=== PATIENT | female | born 1950 | race Two or more races ===

== ENCOUNTER 2016-10-06 12:16 | Inpatient (IN) | payer OTHER ==
--- NOTE | 2016-10-06 16:16 | PDOC ---
History of Present Illness - History of Present Illness Initial Comments: 10/06/16 16:46 The patient is a 66 year old female with a past medical hx of DM, HTN, hyperlipidemia who presents to the ED complaining of nausea for a few days. The patient states she occasionally has been spitting up a white colored sputum. The patient has no further complaints at this time. The patient denies chest pain, SOB The patient denies fever, chills The patient denies dysuria, frequency Allergies: NKDA Social: No toxic habits reported PCP: Dr. Hodge <Ryanne Knowles - Last Filed: 10/06/16 16:46> <Cayetano Nina - Last Filed: 10/07/16 20:37> - General Chief Complaint: Lightheaded Stated Complaint: VOMITING Past History <Ryanne Knowles - Last Filed: 10/06/16 16:46> - Past Medical History Diabetes: Yes HTN: Yes Hypercholesterolemia: Yes - Immunization History Immunization Up to Date: Yes - Psycho/Social/Smoking Cessation Hx Anxiety: No Suicidal Ideation: No Smoking Status: No Smoking History: Never smoked Number of Cigarettes Smoked Daily: 0 Information on smoking cessation initiated: No Hx Alcohol Use: No <Cayetano Nina - Last Filed: 10/07/16 20:37> - Past Medical History Allergies/Adverse Reactions: Allergies Allergy/AdvReac Type Severity Reaction Status Date / Time No Known Allergies Allergy Verified 10/06/16 12:30 Home Medications: Ambulatory Orders Aspirin [ASA -] 81 mg PO DAILY 10/06/16 Cholecalciferol (Vitamin D3) [Vitamin D3 -] 5,000 unit PO DAILY 10/06/16 Linaclotide [Linzess] 145 mcg PO DAILY 10/06/16 Linagliptin/Metformin HCl [Jentadueto 2.5 mg-1000 mg Tab] 1 each PO BID Review of Systems - Review of Systems Able to Perform ROS?: Yes Comments:: 10/06/16 16:47 CONSTITUTIONAL: Absent: fever, no chills, no fatigue EYES: Absent: visual changes ENT: Absent: ear pain, no sore throat CARDIOVASCULAR: Absent: chest pain, no palpitations RESPIRATORY: Absent: cough, no SOB GI: +Nausea. Absent: abdominal pain, no constipation, no diarrhea GENITOURINARY: Absent: dysuria, no frequency, no hematuria MUSCULOSKELETAL: Absent: back pain, no arthralgia, no myalgia SKIN: Absent: rash <Ryanne Knowles - Last Filed: 10/06/16 16:46> *Physical Exam - Vital Signs Last Vital Signs Temp Pulse Resp BP Pulse Ox 97.7 F 61 18 136/70 98 10/06/16 12:27 10/06/16 12:27 10/06/16 12:27 10/06/16 12:27 10/06/16 12:27 - Physical Exam Comments: 10/06/16 16:47 GENERAL: Well-appearing, well-nourished. No apparent distress. HEENT: +Dry mucous membranes. Normocephalic, atraumatic. PERRL, EOM intact. Neck is supple. No JVD. CARDIOVASCULAR: Heart is in sinus rhythm. PULMONARY: Clear to auscultation bilaterally. ABDOMEN: Soft, non-distended, non-tender. EXTREMITIES: Normal ROM in all four extremities. No gross deformities. No peripheral edema. SKIN: Warm, dry. No rash NEUROLOGICAL: No focal neurological deficits. <Ryanne Knowles - Last Filed: 10/06/16 16:46> - Vital Signs Last Vital Signs Temp Pulse Resp BP Pulse Ox 97.7 F 61 18 136/70 98 10/06/16 12:27 10/06/16 12:27 10/06/16 12:27 10/06/16 12:27 10/06/16 12:27 <Cayetano Nina - Last Filed: 10/07/16 20:37> ED Treatment Course - LABORATORY CBC & Chemistry Diagram: 10/06/16 16:20 10/06/16 16:20 <Ryanne Knowles - Last Filed: 10/06/16 16:46> - LABORATORY CBC & Chemistry Diagram: 10/07/16 08:00 10/07/16 08:00 <Cayetano Nina - Last Filed: 10/07/16 20:37> *DC/Admit/Observation/Transfer - Attestations Scribe Attestion: 10/06/16 16:46 Documentation prepared by Ryanne Knowles, acting as medical practice manager for Cayetano Nina MD, /DO. <Ryanne Knowles - Last Filed: 10/06/16 16:46> <Cayetano Nina - Last Filed: 10/07/16 20:37> Diagnosis at time of Disposition: Pancreatitis Qualifiers: Chronicity: acute Pancreatitis type: other Qualified Code(s): K85.8 - Other acute pancreatitis - Referrals
[2016-10-06 16:51] LABS: URINE APPEARANCE CLEAR; URINE BILIRUBIN NEGATIVE (NEGATIVE); URINE BLOOD NEGATIVE (NEGATIVE); URINE COLOR YELLOW; URINE GLUCOSE (UA) NEGATIVE (NEGATIVE); URINE KETONE 1+ (NEGATIVE); URINE NITRITE NEGATIVE (NEGATIVE); URINE PROTEIN NEGATIVE (NEGATIVE); URINE UROBILINOGEN NEGATIVE E.U./dl (0.2-1.0)
[2016-10-06 16:54] LABS: BASOPHIL 0.6 % (0-2.0); EOSINOPHIL 2.2 % (0-4.5); MCH 30.8 pg (25.7-33.7); MCHC 33.6 g/dl (32.0-36.0); MEAN CELL VOLUME 91.7 fl (80-96); MEAN PLT VOLUME 7.9 fl (7.5-11.1); NEUTROPHILS 72.2 % (42.8-82.8); PLATELET COUNT 229 K/MM3 (134-434); RDW 12.5 % (11.6-15.6); WHITE BLOOD COUNT 8.9 K/mm3 (4.0-10.0)
[2016-10-06 17:09] LABS: URINE LEUK ESTERASE TRACE (NEGATIVE)
[2016-10-06 17:12] LABS: ALBUMIN 4.5 g/dl (3.4-5.0); ANION GAP 11 (8-16); BILIRUBIN,TOTAL 0.7 mg/dL (0.2-1.0); CALCIUM 9.5 mg/dL (8.5-10.1); CO2 26 mmol/L (21-32); CREATININE 0.8 mg/dL (0.55-1.02); GLUCOSE,RANDOM 133 mg/dL (74-106); SGOT/AST 33 U/L (15-37); SGPT/ALT 44 U/L (12-78); TOT PROT 7.7 g/dl (6.4-8.2)
[2016-10-06] MEDS ORDERED: SODIUM CHLORIDE 1,000 ML IV ONE (17:12)
[2016-10-06 17:13] LABS: ALK PHOS 66 U/L (45-117)
[2016-10-06] MEDS ORDERED: SODIUM CHLORIDE 1,000 ML IV STA (17:42)
--- NOTE | 2016-10-06 19:39 | PDOC ---
*Physical Exam - Vital Signs Last Vital Signs Temp Pulse Resp BP Pulse Ox 97.7 F 61 18 136/70 98 10/06/16 12:27 10/06/16 12:27 10/06/16 12:27 10/06/16 12:27 10/06/16 12:27 ED Treatment Course - LABORATORY CBC & Chemistry Diagram: 10/06/16 16:20 10/06/16 16:20 - ADDITIONAL ORDERS Additional order review: Laboratory Results 10/06/16 10/06/16 16:20 16:20 Sodium 141 Potassium 4.3 Chloride 104 Carbon Dioxide 26 Anion Gap 11 BUN 18 Creatinine 0.8 Creat Clearance w eGFR > 60 Random Glucose 133 H Calcium 9.5 Total Bilirubin 0.7 AST 33 ALT 44 Alkaline Phosphatase 66 Total Protein 7.7 Albumin 4.5 Lipase 526 H Urine Color Yellow Urine Appearance Clear Urine pH 5.0 Ur Specific Mather 1.021 Urine Protein Negative Urine Glucose (UA) Negative Urine Ketones 1+ H Urine Blood Negative Urine Nitrite Negative Urine Bilirubin Negative Urine Urobilinogen Negative Ur Leukocyte Esterase Trace H 10/06/16 16:20 Influenza Types A,B Antigen (JUDY) - Final Nasopharyngeal Swab - Final 10/06/16 16:20 RBC 4.96 MCV 91.7 MCHC 33.6 RDW 12.5 MPV 7.9 Neutrophils % 72.2 Lymphocytes % 20.7 Monocytes % 4.3 Eosinophils % 2.2 Basophils % 0.6 - Medications Given in the ED: ED Medications Discontinued Medications Generic Name Dose Route Start Last Admin Trade Name Freq PRN Reason Stop Dose Admin Fentanyl 50 mcg 10/06/16 17:43 10/06/16 18:10 Sublimaze Injection - IVPUSH 10/06/16 17:44 50 mcg ONCE ONE Administration Sodium Chloride 1,000 mls @ 1,000 mls/hr 10/06/16 17:12 10/06/16 17:12 Normal Saline - IV 10/06/16 18:11 1,000 mls/hr ASDIR ONE Administration Sodium Chloride 1,000 mls @ 1,000 mls/hr 10/06/16 17:42 10/06/16 18:05 Normal Saline - IV 10/06/16 18:41 Not Given ASDIR STA *DC/Admit/Observation/Transfer Diagnosis at time of Disposition: Pancreatitis Qualifiers: Chronicity: acute Pancreatitis type: other Qualified Code(s): K85.8 - Other acute pancreatitis - Discharge Dispostion Condition at time of disposition: Stable Admit: Yes - Referrals Referrals: Chloé Hodge MD [Primary Care Provider] - - Patient Instructions - Post Discharge Activity
[2016-10-06] MEDS ORDERED: morphine CARPU-JECT 2 MG/1 ML DISP.SYRIN IVPUSH PRN (20:17)
[2016-10-06] MEDS ORDERED: DOCUSATE SODIUM 100 MG CAPSULE (FP) PO PRN (20:17)
[2016-10-06 20:42] LABS: URINE MUCUS FEW; URINE RBC 1 /hpf (0-3); URINE WBC 2 /hpf (3-5)
[2016-10-06] MEDS: DEXTROSE 5%-NORMAL SALINE 1,000 ML IV SCH (22:52)
[2016-10-06] MEDS ORDERED: HEPARIN NA (PORCINE) 5,000 UNITS/ML 1ML VIAL ONE (23:01)
[2016-10-06] MEDS ORDERED: INSULIN (NOVOLOG) ASPART 100 UNITS/ML 10ML VIAL ONE (23:02)
[2016-10-06] MEDS: HEPARIN NA (PORCINE) 5,000 UNITS/ML 1ML VIAL SQ SCH (23:09)
[2016-10-06] MEDS: INSULIN SLIDING SCALE (NOVOLOG) 1 VIAL SQ SCH (23:10)
[2016-10-07 08:34] LABS: BASOPHIL 0.4 % (0-2.0); EOSINOPHIL 6.1 % (0-4.5); MCH 31.5 pg (25.7-33.7); MCHC 34.2 g/dl (32.0-36.0); MEAN CELL VOLUME 92.2 fl (80-96); MEAN PLT VOLUME 7.2 fl (7.5-11.1); NEUTROPHILS 48.7 % (42.8-82.8); PLATELET COUNT 178 K/MM3 (134-434); RDW 12.6 % (11.6-15.6); WHITE BLOOD COUNT 5.9 K/mm3 (4.0-10.0)
[2016-10-07 09:15] LABS: ALBUMIN 3.8 g/dl (3.4-5.0); ANION GAP 8 (8-16); BILIRUBIN,TOTAL 0.5 mg/dL (0.2-1.0); CALCIUM 8.2 mg/dL (8.5-10.1); CO2 28 mmol/L (21-32); CREATININE 0.8 mg/dL (0.55-1.02); GLUCOSE,RANDOM 157 mg/dL (74-106); SGOT/AST 22 U/L (15-37); SGPT/ALT 34 U/L (12-78); TOT PROT 6.5 g/dl (6.4-8.2)
[2016-10-07 09:16] LABS: ALK PHOS 55 U/L (45-117)
[2016-10-07] MEDS: ASPIRIN 81 MG CHEWABLE TABLETS PO SCH ×2 (10:12→10:19)
[2016-10-07] MEDS: HEPARIN NA (PORCINE) 5,000 UNITS/ML 1ML VIAL SQ SCH ×3 (10:13→22:40)
--- NOTE | 2016-10-07 12:47 | HP ---
Admitting History and Physical - Primary Care Physician PCP: Chloé Hodge I - Admission Chief Complaint: came in for nausea History of Present Illness: The patient is a 66 year old female with a past medical hx of DM, HTN, hyperlipidemia who presents to the ED complaining of nausea for a few days. The patient states she occasionally has been spitting up a white colored sputum. The patient has no further complaints at this time. The patient denies chest pain, SOB The patient denies fever, chills The patient denies dysuria, frequency Allergies: NKDA Social: No toxic habits reported PCP: Dr. Hodge per patient she has not been able to eat for last 2 days she has been nauseous and vomitting.no fever no abdominal pain History Source: Patient - Past Medical History Cardiovascular: Yes: HTN, Hyperlipdemia Endocrine: Yes: Diabetes Mellitus - Smoking History Smoking history: Never smoked Aproximately how many cigarettes per day: 0 - Alcohol/Substance Use Hx Alcohol Use: No Home Medications - Allergies Allergies/Adverse Reactions: Allergies Allergy/AdvReac Type Severity Reaction Status Date / Time No Known Allergies Allergy Verified 10/06/16 12:30 - Home Medications Home Medications: Ambulatory Orders Aspirin [ASA -] 81 mg PO DAILY 10/06/16 Cholecalciferol (Vitamin D3) [Vitamin D3 -] 5,000 unit PO DAILY 10/06/16 Linaclotide [Linzess] 145 mcg PO DAILY 10/06/16 Linagliptin/Metformin HCl [Jentadueto 2.5 mg-1000 mg Tab] 1 each PO BID Physical Examination Vital Signs: Vital Signs Temperature 97.1 F L 10/07/16 10:07 Pulse Rate 50 L 10/07/16 10:07 Respiratory Rate 20 10/07/16 10:07 Blood Pressure 124/62 10/07/16 10:07 O2 Sat by Pulse Oximetry (%) 98 10/06/16 12:27 Labs: CBC, BMP 10/07/16 08:00 10/07/16 08:00 Problem List - Problems (1) Elevated lipase Assessment/Plan: maybe viral gastroeneteritis ultrasound shows no acute abnormalitly lipase trending down zofran prn ivf npo for now GI and ID eval pain control check lipid panel check hga1c Code(s): R74.8 - ABNORMAL LEVELS OF OTHER SERUM ENZYMES (2) Diabetes Assessment/Plan: deloris hold metformin and linagliptin for now- might be a cause for her symtpoms check hga1c check bgm sldidng scale Code(s): E11.9 - TYPE 2 DIABETES MELLITUS WITHOUT COMPLICATIONS Qualifiers: Diabetes mellitus type: type 2
[2016-10-07] MEDS ORDERED: ONDANSETRON 4 MG/2 ML VIAL IVPUSH PRN (12:50)
--- NOTE | 2016-10-07 13:16 | PN ---
Progress Note (short form) - Note Progress Note: ID consult dictated imp/reccd nausea elevated lipase no evidence of uti no need for antibiotics Problem List - Problems (1) Nausea Code(s): R11.0 - NAUSEA (2) Pancreatitis Code(s): K85.9 - ACUTE PANCREATITIS, UNSPECIFIED * DO NOT USE * Qualifiers: Chronicity: acute Pancreatitis type: other Qualified Code(s): K85.8 - Other acute pancreatitis
[2016-10-07] MEDS: INSULIN SLIDING SCALE (NOVOLOG) 1 VIAL SQ SCH ×3 (14:15→22:40)
--- NOTE | 2016-10-07 15:26 | EKG ---
Test Reason : Blood Pressure : / mmHG Vent. Rate : 064 BPM Atrial Rate : 064 BPM P-R Int : 150 ms QRS Dur : 092 ms QT Int : 454 ms P-R-T Axes : 023 033 054 degrees QTc Int : 468 ms NORMAL SINUS RHYTHM NONSPECIFIC ST ABNORMALITY ABNORMAL ECG NO PREVIOUS ECGS AVAILABLE Confirmed by YUNIOR GUZMAN MD ([id number]) on 10/07/2016 3:25:59 PM Referred By: Confirmed By:YUNIOR GUZMAN MD
--- NOTE | 2016-10-07 15:27 | CONS ---
DATE OF CONSULTATION: DATE OF DICTATION: 10/07/2016 INFECTIOUS DISEASE CONSULTATION REQUESTING PHYSICIAN: Rex Felton M.D. CONSULTING PHYSICIAN: Lamar Dowd M.D. HISTORY OF PRESENT ILLNESS: This is a 66-year-old woman with a history of intermittent nausea and abnormal LFTs, states she has had for the last several months. She is followed by Dr. Cruz for GI. Yesterday, she became extremely dizzy and nauseous, and she presented to the emergency room. Both the dizziness and nausea has resolved now. She has no vomiting. She has no fevers or chills. She has no chest pain, dysuria, or frequency. PAST MEDICAL HISTORY: Notable for diabetes, hypertension, hypercholesterolemia. She has no known drug allergies. Her oral medication list is notable for aspirin, Linzess, vitamin D, and Jentadueto. FAMILY HISTORY: Noncontributory. SOCIAL HISTORY: She is . She lives with her . There is no history of any recent travel. PHYSICAL EXAMINATION: General: She is awake and alert. Vital signs: Temperature is 97.1, pulse of 50, blood pressure 124/62, respiratory rate 20, she weighs 136. HEENT: Normocephalic. Eyes are anicteric. Neck: Supple. Lungs: Clear to auscultation. Heart: Regular rate and rhythm. Abdomen: Soft. She has no right upper quadrant or midepigastric tenderness, or suprapubic tenderness, or CVA tenderness. Extremities: Without edema. LABORATORY: Notable for a white count of 5.9, hemoglobin 13.6, platelets 178, BUN and creatinine are 18 and 0.8. LFTs are normal. Urinalysis has 2 white cells. Urine culture is pending. Influenza screen is negative. Her ultrasound of her abdomen is notable for diffuse hepatic steatosis, and otherwise unremarkable. IMPRESSION: In summary, this is a 66-year-old woman admitted with nausea and elevated lipase. No evidence of any urinary tract infection, no need for antibiotics. Her antibiotics--would observe her off antibiotics with gastrointestinal evaluation. LAMAR DOWD M.D. ALISHA/[id number]
--- NOTE | 2016-10-07 15:58 | CON.GI ---
Consult Consult Specialty:: Gi Referred by:: Dr Felton/Madina - History of Present Illness History of Present Illness: 66y/o female has nausea and vomiting this morning associated with chronic ASA use and mildly elevated lipase, abd ultrasound fatty liver, no GB stones - Past Medical History Cardio/Vascular: Yes: HTN, Hyperlipdemia Endocrine: Yes: Diabetes Mellitus - Alcohol/Substance Use Hx Alcohol Use: No - Smoking History Smoking history: Never smoked Aproximately how many cigarettes per day: 0 Home Medications - Allergies Allergies/Adverse Reactions: Allergies Allergy/AdvReac Type Severity Reaction Status Date / Time No Known Allergies Allergy Verified 10/06/16 12:30 - Home Medications Home Medications: Ambulatory Orders Aspirin [ASA -] 81 mg PO DAILY 10/06/16 Cholecalciferol (Vitamin D3) [Vitamin D3 -] 5,000 unit PO DAILY 10/06/16 Linaclotide [Linzess] 145 mcg PO DAILY 10/06/16 Linagliptin/Metformin HCl [Jentadueto 2.5 mg-1000 mg Tab] 1 each PO BID Physical Exam-GI Vital Signs: Vital Signs Temperature 97.1 F L 10/07/16 10:07 Pulse Rate 50 L 10/07/16 10:07 Respiratory Rate 20 10/07/16 10:07 Blood Pressure 124/62 10/07/16 10:07 O2 Sat by Pulse Oximetry (%) 98 10/06/16 12:27 Constitutional: Yes: Well Nourished Eyes: Yes: Conjunctiva Clear HENT: Yes: Atraumatic Neck: Yes: Supple Cardiovascular: Yes: Regular Rate and Rhythm Respiratory: Yes: CTA Bilaterally ...Palpate: Yes: Soft. No: Firm/Rigid, Guarding, Hepatomegaly, Mass, Pulsatile Mass, Splenomegaly, Tenderness Edema: LUE: 4+, RUE: 4+, LLE: 4+, RLE: 4+ Labs: CBC, BMP 10/07/16 08:00 10/07/16 08:00 Hepatic Panel Total Bilirubin 0.5 mg/dL (0.2-1.0) D 10/07/16 08:00 AST 22 U/L (15-37) D 10/07/16 08:00 ALT 34 U/L (12-78) D 10/07/16 08:00 Alkaline Phosphatase 55 U/L (45-117) 10/07/16 08:00 Albumin 3.8 g/dl (3.4-5.0) 10/07/16 08:00 CBC,CMP WBC 5.9 K/mm3 (4.0-10.0) D 10/07/16 08:00 RBC 4.30 M/mm3 (3.60-5.2) 10/07/16 08:00 Hgb 13.6 GM/dL (10.7-15.3) D 10/07/16 08:00 Hct 39.6 % (32.4-45.2) 10/07/16 08:00 MCV 92.2 fl (80-96) 10/07/16 08:00 MCHC 34.2 g/dl (32.0-36.0) 10/07/16 08:00 RDW 12.6 % (11.6-15.6) 10/07/16 08:00 Plt Count 178 K/MM3 (134-434) D 10/07/16 08:00 MPV 7.2 fl (7.5-11.1) L 10/07/16 08:00 Neutrophils % 48.7 % (42.8-82.8) D 10/07/16 08:00 Lymphocytes % 36.6 % (8-40) D 10/07/16 08:00 Monocytes % 8.2 % (3.8-10.2) D 10/07/16 08:00 Eosinophils % 6.1 % (0-4.5) H D 10/07/16 08:00 Basophils % 0.4 % (0-2.0) 10/07/16 08:00 Sodium 143 mmol/L (136-145) 10/07/16 08:00 Potassium 3.9 mmol/L (3.5-5.1) 10/07/16 08:00 Chloride 107 mmol/L (98-107) 10/07/16 08:00 Carbon Dioxide 28 mmol/L (21-32) 10/07/16 08:00 Anion Gap 8 (8-16) 10/07/16 08:00 BUN 18 mg/dL (7-18) 10/07/16 08:00 Creatinine 0.8 mg/dL (0.55-1.02) 10/07/16 08:00 Creat Clearance w eGFR > 60 (>60) 10/07/16 08:00 POC Glucometer 143.97610 UNITS (()) 10/07/16 14:02 Random Glucose 157 mg/dL (74-106) H 10/07/16 08:00 Calcium 8.2 mg/dL (8.5-10.1) L 10/07/16 08:00 Total Bilirubin 0.5 mg/dL (0.2-1.0) D 10/07/16 08:00 AST 22 U/L (15-37) D 10/07/16 08:00 ALT 34 U/L (12-78) D 10/07/16 08:00 Alkaline Phosphatase 55 U/L (45-117) 10/07/16 08:00 Total Protein 6.5 g/dl (6.4-8.2) 10/07/16 08:00 Albumin 3.8 g/dl (3.4-5.0) 10/07/16 08:00 Lipase 254 U/L (73-393) 10/07/16 08:00 Problem List - Problems (1) Vomiting Assessment/Plan: and nausea, unlikely pancredatitis, R?O PUD and gastroparesis R> continue IV hydration IV Protonix IV Reglan advance diet made aware to fff-up as an outpatient for further gi w/u Code(s): R11.10 - VOMITING, UNSPECIFIED
--- NOTE | 2016-10-07 17:14 | CONSULT ---
Consult Consult Specialty:: Surgery Referred by:: Chary Reason for Consultation:: Abdominal pain, nausea. - History of Present Illness Chief Complaint: Pain , in upper abdomen abdomen since yesterday, with nausea. History of Present Illness: C/O Upper abdomional pain , and nausea since yesterday. No diarrhea. - History Source History Provided By: Patient Limitations to Obtaining History: No Limitations - Past Medical History Cardio/Vascular: Yes: HTN, Hyperlipdemia Endocrine: Yes: Diabetes Mellitus - Alcohol/Substance Use Hx Alcohol Use: No - Smoking History Smoking history: Never smoked Aproximately how many cigarettes per day: 0 Home Medications - Allergies Allergies/Adverse Reactions: Allergies Allergy/AdvReac Type Severity Reaction Status Date / Time No Known Allergies Allergy Verified 10/06/16 12:30 - Home Medications Home Medications: Ambulatory Orders Aspirin [ASA -] 81 mg PO DAILY 10/06/16 Cholecalciferol (Vitamin D3) [Vitamin D3 -] 5,000 unit PO DAILY 10/06/16 Linaclotide [Linzess] 145 mcg PO DAILY 10/06/16 Linagliptin/Metformin HCl [Jentadueto 2.5 mg-1000 mg Tab] 1 each PO BID Physical Exam Vital Signs: Vital Signs Temperature 97.1 F L 10/07/16 10:07 Pulse Rate 50 L 10/07/16 10:07 Respiratory Rate 20 10/07/16 10:07 Blood Pressure 124/62 10/07/16 10:07 O2 Sat by Pulse Oximetry (%) 98 10/06/16 12:27 Gastrointestinal: Yes: WNL, Normal Bowel Sounds, Soft (No palpable mass.) Labs: CBC, BMP 10/07/16 08:00 10/07/16 08:00 Imaging - Results Ultrasound: Report Reviewed (Hepatic steatosis.) Problem List - Problems (1) Elevated lipase Code(s): R74.8 - ABNORMAL LEVELS OF OTHER SERUM ENZYMES (2) Diabetes Code(s): E11.9 - TYPE 2 DIABETES MELLITUS WITHOUT COMPLICATIONS Qualifiers: Diabetes mellitus type: type 2 Diabetes mellitus complication status: without complication (3) Pancreatitis Code(s): K85.9 - ACUTE PANCREATITIS, UNSPECIFIED * DO NOT USE * Qualifiers: Chronicity: acute Pancreatitis type: other Qualified Code(s): K85.8 - Other acute pancreatitis Assessment/Plan Patient is comfortable, no abdominal signs. Monitor lipase , with serial blood work. Will follow.
[2016-10-07] MEDS ORDERED: INSULIN (NOVOLOG) ASPART 100 UNITS/ML 10ML VIAL ONE ×2 (17:22→17:23)
[2016-10-07 21:11] VITALS: BMI 24.3
[2016-10-07] MEDS ORDERED: PANTOPRAZOLE SODIUM 40 MG in SODIUM CHLORIDE 100 ML IVPB SCH (22:00)
[2016-10-07] MEDS: METOCLOPRAMIDE HCL INJECTION 10 MG/2 ML VIAL IVPB SCH (22:41)
[2016-10-07] MEDS: DEXTROSE 5%-NORMAL SALINE 1,000 ML IV SCH (22:41)
[2016-10-07] MEDS: PANTOPRAZOLE SODIUM 40 MG/100 ML PRE-DOCKED IVPB SCH (22:41)
[2016-10-08] MEDS: METOCLOPRAMIDE HCL INJECTION 10 MG/2 ML VIAL IVPB SCH ×2 (05:37→14:40)
[2016-10-08] MEDS: INSULIN SLIDING SCALE (NOVOLOG) 1 VIAL SQ SCH ×3 (06:01→12:02)
[2016-10-08 09:49] VITALS: BP 113/61
[2016-10-08] MEDS: ASPIRIN 81 MG CHEWABLE TABLETS PO SCH (09:51)
[2016-10-08] MEDS: HEPARIN NA (PORCINE) 5,000 UNITS/ML 1ML VIAL SQ SCH (09:51)
[2016-10-08] MEDS: PANTOPRAZOLE SODIUM 40 MG/100 ML PRE-DOCKED IVPB SCH (09:51)
[2016-10-08 09:54] LABS: ALBUMIN 3.6 g/dl (3.4-5.0); ALK PHOS 52 U/L (45-117); ANION GAP 10 (8-16); BILIRUBIN,TOTAL 0.5 mg/dL (0.2-1.0); CO2 26 mmol/L (21-32); CREATININE 0.7 mg/dL (0.55-1.02); GLUCOSE,RANDOM 152 mg/dL (74-106); SGOT/AST 25 U/L (15-37); SGPT/ALT 31 U/L (12-78); TOT PROT 6.3 g/dl (6.4-8.2)
[2016-10-08 10:17] LABS: CHOLESTEROL 143 mg/dL (50-200); LDL CHOLESTEROL (ONLY SJRH) 77 mg/dL (5-100)
[2016-10-08] MEDS ORDERED: INSULIN (NOVOLOG) ASPART 100 UNITS/ML 10ML VIAL ONE (11:43)
[2016-10-08] MEDS: DEXTROSE 5%-NORMAL SALINE 1,000 ML IV SCH (12:02)
[2016-10-08 13:44] VITALS: PULSE 60; TEMP 98.5
--- NOTE | 2016-10-08 14:31 | DS ---
Physical Examination Vital Signs: Vital Signs Temperature 98.5 F 10/08/16 13:28 Pulse Rate 60 10/08/16 13:28 Respiratory Rate 18 10/08/16 13:28 Blood Pressure 113/61 10/08/16 09:49 O2 Sat by Pulse Oximetry (%) 98 10/07/16 09:00 Constitutional: Yes: Well Nourished Eyes: Yes: WNL HENT: Yes: WNL Neck: Yes: WNL Cardiovascular: Yes: WNL Respiratory: Yes: WNL Gastrointestinal: Yes: WNL Renal/: Yes: WNL Musculoskeletal: Yes: WNL Extremities: Yes: WNL Edema: No Peripheral Pulses WNL: Yes Integumentary: Yes: WNL Wound/Incision: Yes: Clean/Dry Neurological: Yes: WNL ...Motor Strength: WNL Psychiatric: Yes: WNL Labs: CBC, BMP 10/07/16 08:00 10/08/16 07:45 Discharge Summary Reason For Visit: PANCREANTITIS Current Active Problems Diabetes (Acute) Elevated lipase (Acute) Nausea (Acute) Pancreatitis (Acute) Vomiting (Acute) Procedures: Principal: SONO ABDOMEN Other Procedures: LABS/CULTURES Hospital Course: ADMITTED FOR ACUTE PANCREATITIS, RESOLVED AFTER IVF, BOWEL REST, PAIN MEDS, ADVANCE DIET AND DC HOME ON REGLAN AND [id number] Condition: Improved - Instructions Diet, Activity, Other Instructions: ADVANCE TOLERATED, SEE PMD IN 2-3 DAYS Referrals: Chloé Hodge MD [Primary Care Provider] - Disposition: HOME - Home Medications Comprehensive Discharge Medication List: Ambulatory Orders Aspirin [ASA -] 81 mg PO DAILY 10/06/16 Cholecalciferol (Vitamin D3) [Vitamin D3 -] 5,000 unit PO DAILY 10/06/16 Linaclotide [Linzess] 145 mcg PO DAILY 10/06/16 Linagliptin/Metformin HCl [Jentadueto 2.5 mg-1000 mg Tab] 1 each PO BID
--- NOTE | 2016-10-08 14:37 | PN ---
GI Progress Note Subjective: no abdominal pain, nasuea and vomitng resolved - Objective Vital Signs: Vital Signs Temperature 98.5 F 10/08/16 13:28 Pulse Rate 60 10/08/16 13:28 Respiratory Rate 18 10/08/16 13:28 Blood Pressure 113/61 10/08/16 09:49 O2 Sat by Pulse Oximetry (%) 98 10/07/16 09:00 Constitutional: Well Nourished Eyes: Yes: Conjunctiva Clear HENT: Yes: Atraumatic Neck: Yes: Supple Cardiovascular: Yes: Regular Rate and Rhythm Respiratory: Yes: CTA Bilaterally ...Palpate: Yes: Soft. No: Firm/Rigid, Guarding, Hepatomegaly, Mass, Pulsatile Mass, Splenomegaly, Tenderness Labs: CBC, BMP 10/07/16 08:00 10/08/16 07:45 Problem List - Problems (1) Vomiting Assessment/Plan: --resolved R>made aware to ff-up EGD as an outpatient Code(s): R11.10 - VOMITING, UNSPECIFIED
--- NOTE | 2016-10-08 15:58 | PN ---
Progress Note, Physician - Current Medication List Current Medications: Active Medications Aspirin (Asa -) 81 mg PO DAILY [facility] Last Admin: 10/08/16 09:51 Dose: 81 mg Metoclopramide HCl (Reglan -) 10 mg PO TIDAC [facility] Ranitidine HCl (Zantac -) 150 mg PO BID [facility] - Objective Vital Signs: Vital Signs Temperature 98.5 F 10/08/16 13:28 Pulse Rate 60 10/08/16 13:28 Respiratory Rate 18 10/08/16 13:28 Blood Pressure 113/61 10/08/16 09:49 O2 Sat by Pulse Oximetry (%) 98 10/07/16 09:00 Labs: CBC, BMP 10/07/16 08:00 10/08/16 07:45 Problem List - Problems (1) Elevated lipase Code(s): R74.8 - ABNORMAL LEVELS OF OTHER SERUM ENZYMES (2) Diabetes Code(s): E11.9 - TYPE 2 DIABETES MELLITUS WITHOUT COMPLICATIONS Qualifiers: Diabetes mellitus type: type 2 Diabetes mellitus complication status: without complication (3) Pancreatitis Code(s): K85.9 - ACUTE PANCREATITIS, UNSPECIFIED * DO NOT USE * Qualifiers: Chronicity: acute Pancreatitis type: other Qualified Code(s): K85.8 - Other acute pancreatitis Assessment/Plan Surgery: Patient is feeling better . Denies any abdominal pain. An error was made in the note of 10/07/2016 , regarding the ultrasound of the gallbladder. This information is about another patient. No abdominal pain , no gallstones. Patient is being discharged.
[2016-10-08] MEDS ORDERED: METOCLOPRAMIDE HCL 10 MG TABLET (FP) PO SCH (16:30)
[2016-10-08] MEDS ORDERED: RANITIDINE HCL 150 MG TABLET (FP) PO SCH (22:00)
== END 2016-10-08 16:22 | disposition home or self-care (01) | DRG 440 ==
LOC: JER 12:16 → JERBED 20:12 → J6S 10-07 19:31
PROVIDERS: ADMIT Family Medicine; ATTEND Family Medicine
DX: K85.90 Acute pancreatitis without necrosis or infection, unspecified (principal); E11.9 Type 2 diabetes mellitus without complications; I10 Essential (primary) hypertension; E78.5 Hyperlipidemia, unspecified; Z79.84 Long term (current) use of oral hypoglycemic drugs
CPT/HCPCS: 36415; 76705-TC; 80053; 80061; 81003; 81015; 83036; 83690; 83721; 85025; 87086; 87804; 93005; 93010; 99285-25; J1644

== ENCOUNTER 2016-10-31 12:54 | Emergency (ER) | payer OTHER ==
[2016-10-31 13:06] VITALS: BP 111/56; PULSE 78; TEMP 97.9; BMI 22.6
--- NOTE | 2016-10-31 13:28 | PDOC ---
History of Present Illness - General Chief Complaint: Foreign Body (FB) Stated Complaint: FOREIGN OBJECT IN LEG, GLASS (DIABETIC) Time Seen by Provider: 10/31/16 13:21 History Source: Patient Exam Limitations: No Limitations (urine is currently crying a lot a note is within the chronic.) - History of Present Illness Initial Comments: 10/31/16 13:59 Chief complaint: Piece of glass in the bottom of right foot from yesterday and dry cough with nasal congestion for 3 days History of present illness: Patient is a 66 year old female with a history of hypertension, hyperlipidemia and lkh-jmuhjjy-nntjsesjs diabetic here today complaining of stepping on a tiny piece of glass and getting it in her right foot yesterday at home. Patient reports that she can feel a tiny amount of pain when she puts her foot down. Patient also is here due to nasal congestion with clear rhinorrhea and dry cough 3 days. Patient denies any fever. Patient denies sore throat nausea vomiting or diarrhea or any difficulty breathing. Patient is up-to-date with her tetanus got it 2 years ago. She did receive her influenza vaccine this year. Patient denies any sick contacts or any recent travel. Occurred: reports: yesterday (stepped on a tiny piece of glass yesterday rt. foot ), other (three days intermittent dr visiting is taking cough ) Severity: reports: moderate Pain Location: reports: lower extremity (rt. foot ) Method of Injury: Yes: other (stepped on tiny piece of glass rt. foot ) Past History - Past Medical History Allergies/Adverse Reactions: Allergies Allergy/AdvReac Type Severity Reaction Status Date / Time No Known Allergies Allergy Verified 10/31/16 13:01 Home Medications: Ambulatory Orders Cholecalciferol (Vitamin D3) [Vitamin D -] 5,000 unit PO DAILY 10/06/16 Linagliptin/Metformin HCl [Jentadueto 2.5 mg-1000 mg Tab] 1 each PO BID Aspirin [ASA -] 81 mg PO DAILY tab.chew 10/08/16 Metoclopramide HCl [Reglan -] 10 mg PO TIDAC #30 tablet 10/08/16 Ranitidine [Zantac -] 150 mg PO BID #60 tablet 10/08/16 Dextromethorphan Polistirex [Delsym] 60 mg PO Q12H PRN #8 [id number].er.[id number] MDD 2 02/13 /17 Fexofenadine HCl [Jossy Allergy] 180 mg PO DAILY #7 tablet 10/31/16 Diabetes: Yes HTN: Yes Hypercholesterolemia: Yes - Immunization History Immunization Up to Date: Yes - Psycho/Social/Smoking Cessation Hx Anxiety: No Suicidal Ideation: No Smoking Status: No Smoking History: Never smoked Number of Cigarettes Smoked Daily: 0 Hx Alcohol Use: No Drug/Substance Use Hx: No Substance Use Type: None Review of Systems - Review of Systems Able to Perform ROS?: Yes Constitutional: No: Symptoms Reported HEENTM: Yes: Nose Congestion Respiratory: Yes: Cough (dry cough ). No: Shortness of Breath, SOB with Exertion, SOB at Rest, Stridor, Wheezing, Productive cough Cardiac (ROS): No: Symptoms Reported ABD/GI: No: Symptoms Reported : No: Symptoms Reported Musculoskeletal: No: Symptoms Reported Integumentary: Yes: Other (stepped on a tiny piece of glass rt. foot yesterday still in foot ) Neurological: No: Symptoms reported *Physical Exam - Vital Signs Last Vital Signs Temp Pulse Resp BP Pulse Ox 97.9 F 78 20 111/56 98 10/31/16 13:01 10/31/16 13:01 10/31/16 13:01 10/31/16 13:01 10/31/16 13:01 - Physical Exam General Appearance: Yes: Appropriately Dressed HEENT: positive: Nasal Congestion, Rhinorrhea. negative: TMs Normal, Pharyngeal Erythema, Tonsillar Exudate, Tonsillar Erythema Neck: negative: Lymphadenopathy (R), Lymphadenopathy (L) Respiratory/Chest: positive: Lungs Clear, Normal Breath Sounds. negative: Chest Tender, Respiratory Distress Cardiovascular: positive: Regular Rhythm, Regular Rate, S1, S2 Integumentary: positive: Other (tiny piece of glass noted superfically rt. plantar foot, after removed no bleeding) Procedures - Consent Consent obtained: From Patient - Additional Procedures Progress: 10/31/16 14:12 Area where piece of glass was superficially embedded in right plantar foot distal aspect pointed out by patient was able to visibly see a tiny piece of glass cleanse the area with Betadine and using an 18-gauge needle was able to flex piece of glass out area was then again cleansed with Betadine and normal saline 0.9% there was no bleeding of area. No signs of infection no surrounding erythema area was dried and Band-Aid applied Medical Decision Making - Medical Decision Making 10/31/16 14:02 Patient is a 66 year old female with a history of hypertension, hyperlipidemia and iab-ooftnqo-kkgleipcm diabetic here today complaining of stepping on a tiny piece of glass and getting it in her right foot yesterday at home. Patient reports that she can feel a tiny amount of pain when she puts her foot down. Patient also is here due to nasal congestion with clear rhinorrhea and dry cough 3 days. Patient denies any fever. Patient denies sore throat nausea vomiting or diarrhea or any difficulty breathing. Patient is up-to-date with her tetanus got it 2 years ago. She did receive her influenza vaccine this year. Patient denies any sick contacts or any recent travel. Tiny piece of glass embedded superfically rt. plantar foot Upper Respiratory Infection PLAN: removal glass from rt. plantar foot,with no complications, no need for antibiotics was very superfical no bleeding from wound Delsym 10 mg q 12 hrs prn cough for 5 days jossy 180 mg daily for 7 days duoneb now follow up with primary in a few days 10/31/16 14:06 10/31/16 14:13 *DC/Admit/Observation/Transfer Diagnosis at time of Disposition: Upper respiratory infection Qualifiers: URI type: unspecified URI Qualified Code(s): J06.9 - Acute upper respiratory infection, unspecified Foreign body in foot, right Qualifiers: Encounter type: initial encounter Qualified Code(s): S90.851A - Superficial foreign body, right foot, initial encounter - Discharge Dispostion Disposition: HOME Condition at time of disposition: Stable - Patient Instructions Additional Instructions: Follow-up with your primary care provider within the next few days Return to emergency room if any redness around area where glass was and your right foot or any discharge or any difficulty breathing Drink a lot a fluids and rest Cleanse your right foot with antibacterial soap twice daily until area is totally healed Patient voiced understanding of discharge instructions and all questions were answered Jon un seguimiento con quiroz proveedor de atencin primaria dentro de los pr ximos cooney Vuelva a la kalli de emergencias si hay enrojecimiento alrededor del lillian donde estaba el jung y quiroz pie derecho o cualquier descarga o dificultad para respirar Beber mucho lquidos y descansar Limpie quiroz pie derecho con jabn antibacterial dos veces al da hasta que el lillian est totalmente curada Comprensin del paciente sobre las instrucciones de doretha y todas las preguntas fueron contestadas
[2016-10-31] MEDS ORDERED: ALBUTEROL SO4 2.5/IPRATROPIUM 0.5 INH SOL 3 ML VIAL.NEB. NEB ONE ×2 (13:41→13:45)
[2016-10-31] MEDS ORDERED: DIPHTH,PERTUSS(ACELL),TET VAC 0.5 ML VIAL IM ONE (13:42)
[2016-10-31] MEDS ORDERED: DIPHTH,PERTUSS(ACELL),TET 0.5 ML DISP.SYRIN IM ONE (13:45)
== END 2016-10-31 14:20 | disposition home or self-care (01) ==
LOC: JERFT 12:54
PROC: 3E0F7GC Introduction of Other Therapeutic Substance into Respiratory Tract, Via Natural or Artificial Opening (ICD-10-PCS; principal; 2016-10-31)
PROC: 0HCMXZZ Extirpation of Matter from Right Foot Skin, External Approach (ICD-10-PCS; 2016-10-31)
DX: S90.851A Superficial foreign body, right foot, initial encounter (principal); W45.8XXA Other foreign body or object entering through skin, initial encounter; W25.XXXA Contact with sharp glass, initial encounter; Y93.89 Activity, other specified; Y92.038 Other place in apartment as the place of occurrence of the external cause; J06.9 Acute upper respiratory infection, unspecified
CPT/HCPCS: 10120; 94640; 99281-25

== ENCOUNTER → 2016-11-10 | Emergency (ER) | payer OTHER ==
[~2016-11-10] MED LIST: AZITHROMYCIN 250 MG TABLET (FP) ONE; AZITHROMYCIN 250 MG TABLET (FP) PO ONE; SODIUM CHLORIDE 0.9% 500 ML INFUS.BAG IV ONE; SODIUM CHLORIDE 1,000 ML IV STA
[2016-11-10 17:54] VITALS: BP 105/69; PULSE 88; TEMP 98.3; BMI 21.9
[2016-11-10 18:40] LABS: BASOPHIL 0.6 % (0-2.0); MCH 30.4 pg (25.7-33.7); MCHC 33.4 g/dl (32.0-36.0); MEAN CELL VOLUME 91.2 fl (80-96); MEAN PLT VOLUME 7.1 fl (7.5-11.1); NEUTROPHILS 68.3 % (42.8-82.8); PLATELET COUNT 327 K/MM3 (134-434); RDW 12.7 % (11.6-15.6); WHITE BLOOD COUNT 11.7 K/mm3 (4.0-10.0)
--- NOTE | 2016-11-10 18:50 | PDOC ---
History of Present Illness - General History Source: Patient, Spouse (), Old Records Exam Limitations: No Limitations - History of Present Illness Initial Comments: 11/10/16 19:16 The patient is a 66 year old female, with a significant past medical history of HTN, hyperlipidemia, diabetes and pancreatitis, who presents to the emergency department with generalized weakness for the past 4 weeks. The patient reports that she has been feeling weak since she was discharged from this hospital on . The patient had been admitted for pancreatitis at that time. Since being discharged, the patient reports feeling generally weak and fatigued. She additionally reports a dry cough. She states that when she coughs, she experiences upper back pain. She rates the back pain as a 6/10. The patient denies any chest pain or shortness of breath. The patient denies fever, chills, vomiting, diarrhea, constipation or dysuria. The patient's primary language is Luxembourgish, her is at the bedside translating. Allergies: None reported. Past Surgical History: None reported. Social History: Non smoker. Denies alcohol or drug use. PCP: Dr. Hodge <Elyssa Vela - Last Filed: 11/10/16 21:51> - General History Source: Patient Exam Limitations: No Limitations <Richard Shi - Last Filed: 11/11/16 12:59> - General Chief Complaint: Weakness Stated Complaint: WEAKNESS Time Seen by Provider: 11/10/16 17:46 Past History <Elyssa Vela - Last Filed: 11/10/16 21:51> - Past Medical History Diabetes: Yes HTN: Yes Hypercholesterolemia: Yes - Immunization History Immunization Up to Date: Yes - Psycho/Social/Smoking Cessation Hx Anxiety: No Suicidal Ideation: No Smoking Status: No Smoking History: Never smoked Number of Cigarettes Smoked Daily: 0 Hx Alcohol Use: No Drug/Substance Use Hx: No Substance Use Type: None <Richard Shi - Last Filed: 11/11/16 12:59> - Past Medical History Allergies/Adverse Reactions: Allergies Allergy/AdvReac Type Severity Reaction Status Date / Time No Known Allergies Allergy Verified 11/10/16 17:46 Home Medications: Ambulatory Orders Atorvastatin Calcium 40 mg PO ONCE 11/10/16 Azithromycin 250 mg PO DAILY #4 tablet 11/10/16 Maria L Chewable Aspirin 81 mg PO ONCE 11/10/16 Calcitrate 950 mg PO ONCE 11/10/16 Drisdol - 50,000 unit PO WEEKLY 11/10/16 Enalapril Maleate 20 mg PO ONCE 11/10/16 Fosamax (Weekly) 70 mg PO WEEKLY 11/10/16 Glipizide 10 mg PO BID 11/10/16 Jardiance 10 mg PO ONCE 11/10/16 Jentadueto Xr 2.5 mg-1,000 mg PO BID 11/10/16 Linzess 145 mcg PO ONCE 11/10/16 Mometasone Furoate 50 mcg 11/10/16 Pazeo 0.7 11/10/16 Singulair 10 mg PO 11/10/16 Voltaren 11/10/16 Zantac 150 mg PO ONCE 11/10/16 Review of Systems - Review of Systems Able to Perform ROS?: Yes Comments:: 11/10/16 19:02 GENERAL/CONSTITUTIONAL: +Generalized weakness/fatigue. No fever or chills. HEAD, EYES, EARS, NOSE AND THROAT: No change in vision. No ear pain or discharge. No sore throat. CARDIOVASCULAR: No chest pain or shortness of breath. RESPIRATORY: +Cough. No wheezing or hemoptysis. GASTROINTESTINAL: No nausea, vomiting, diarrhea or constipation. GENITOURINARY: No dysuria, frequency, or change in urination. MUSCULOSKELETAL: +Back pain. No joint or muscle swelling or pain. No neck pain. SKIN: No rash. NEUROLOGIC: No headache, vertigo, loss of consciousness, or change in strength/ sensation. ENDOCRINE: No increased thirst. No abnormal weight change. HEMATOLOGIC/LYMPHATIC: No anemia, easy bleeding, or history of blood clots. ALLERGIC/IMMUNOLOGIC: No hives or skin allergy. <Elyssa Vela - Last Filed: 11/10/16 21:51> *Physical Exam - Vital Signs Last Vital Signs Temp Pulse Resp BP Pulse Ox 98.3 F 88 19 105/69 98 11/10/16 17:47 11/10/16 17:47 11/10/16 17:47 11/10/16 17:47 11/10/16 17:47 - Physical Exam Comments: 11/10/16 18:52 GENERAL: Awake, alert, and fully oriented, in no acute distress. HEAD: No signs of trauma. EYES: PERRLA, EOMI, sclera anicteric, conjunctiva clear. ENT: Auricles normal inspection, hearing grossly normal, nares patent, oropharynx clear without exudates. Moist mucosa. NECK: Normal ROM, supple, no lymphadenopathy, JVD, or masses. LUNGS: Breath sounds equal, clear to auscultation bilaterally. No wheezes, and no crackles. HEART: Regular rate and rhythm, normal S1 and S2, no murmurs, rubs or gallops. ABDOMEN: Soft, nontender, normoactive bowel sounds. No guarding, no rebound. No masses. EXTREMITIES: Normal range of motion, no edema. No clubbing or cyanosis. No cords , erythema, or tenderness. NEUROLOGICAL: Cranial nerves II through XII intact. Normal speech, gait deferred. SKIN: Warm, dry, normal turgor, no rashes or lesions noted. <Elyssa Vela - Last Filed: 11/10/16 21:51> - Vital Signs Last Vital Signs Temp Pulse Resp BP Pulse Ox 98.3 F 88 19 105/69 98 11/10/16 17:47 11/10/16 17:47 11/10/16 17:47 11/10/16 17:47 11/10/16 17:47 <Richard Shi - Last Filed: 11/11/16 12:59> Heart Score/ECG Review #1 ECG reviewed & interpreted by me at: 20:35 11/10/16 20:45 NSR 69, no std/annmarie, normal axis, normal intervals, QTC 441 msec <Richard Shi - Last Filed: 11/11/16 12:59> ED Treatment Course - LABORATORY CBC & Chemistry Diagram: 11/10/16 18:00 11/10/16 18:00 - ADDITIONAL ORDERS Additional order review: 11/10/16 18:00 RBC 4.53 MCV 91.2 MCHC 33.4 RDW 12.7 MPV 7.1 L Neutrophils % 68.3 D Lymphocytes % 21.8 D Monocytes % 7.3 Eosinophils % 2.0 Basophils % 0.6 - Medications Given in the ED: ED Medications Discontinued Medications Generic Name Dose Route Start Last Admin Trade Name Freq PRN Reason Stop Dose Admin Sodium Chloride 1,000 ml 11/10/16 17:50 11/10/16 18:31 Normal Saline - IV 11/10/16 17:51 1,000 ml ONCE ONE Administration <Elyssa Vela - Last Filed: 11/10/16 21:51> - LABORATORY CBC & Chemistry Diagram: 11/10/16 18:00 11/10/16 18:00 - ADDITIONAL ORDERS Additional order review: 11/10/16 18:00 RBC 4.53 MCV 91.2 MCHC 33.4 RDW 12.7 MPV 7.1 L Neutrophils % 68.3 D Lymphocytes % 21.8 D Monocytes % 7.3 Eosinophils % 2.0 Basophils % 0.6 - Medications Given in the ED: ED Medications Discontinued Medications Generic Name Dose Route Start Last Admin Trade Name Freq PRN Reason Stop Dose Admin Sodium Chloride 1,000 ml 11/10/16 17:50 11/10/16 18:31 Normal Saline - IV 11/10/16 17:51 1,000 ml ONCE ONE Administration <Richard Shi - Last Filed: 11/11/16 12:59> Medical Decision Making - Medical Decision Making 11/10/16 20:[address] Hodge at 20:58, 21:34. Referred to answering service, awaiting callback. <Elyssa Vela - Last Filed: 11/10/16 21:51> - Medical Decision Making 11/10/16 18:48 A portion of this note was documented by scribe services under my direction. I have reviewed the details of the note, within reason, and agree with the documentation with the following case summary and management plan written by me. Patient treated in the ED. Nursing notes are reviewed and incorporated into the medical decision-making. Vital signs reviewed. Peripheral IV access obtained by the nurse, laboratory studies are drawn and sent, reviewed and interpreted by myself. Vital Signs Temp Pulse Resp BP Pulse Ox 98.3 F 88 19 105/69 98 11/10/16 17:47 11/10/16 17:47 11/10/16 17:47 11/10/16 17:47 11/10/16 17:47 66-year-old female with past medical history of hypertension, diabetes, hyperlipidemia presents with generalized weakness and malaise since her discharge in late September 2016. Patient was admitted in September for pancreatitis. She had workup performed and the patient was discharged. Since then, the patient has been having persistent generalized fatigue and weakness and chest congestion. Denies fevers or chills. She denies midsternal chest pain or shortness of breath. She has been feeling generally weaker and came to the ED. She reports that the cough she reports diffuse upper back pain. However, her components or not exertional. We'll need to rule out pneumonia as potential source of weakness. However, I suspect that the very minimum the patient has bronchitis. Potential sick contacts was when she was admitted to the hospital. Patient denies any chest pain or abdominal pain making acute coronary syndrome or pancreatitis less likely. We'll however send an EKG, troponin, lipase. We'll give IV fluids. And reassess. 11/10/16 21:41 Chest xray reviewed by me, pending official radiology read. No acute infiltrates. CBC, BMP 11/10/16 18:00 11/10/16 18:00 CMP Sodium 136 mmol/L (136-145) 11/10/16 18:00 Potassium 4.9 mmol/L (3.5-5.1) D 11/10/16 18:00 Chloride 101 mmol/L (98-107) 11/10/16 18:00 Carbon Dioxide 23 mmol/L (21-32) 11/10/16 18:00 Anion Gap 12 (8-16) 11/10/16 18:00 BUN 30 mg/dL (7-18) H D 11/10/16 18:00 Creatinine 1.2 mg/dL (0.55-1.02) H D 11/10/16 18:00 Creat Clearance w eGFR 44.95 (>60) 11/10/16 18:00 Random Glucose 109 mg/dL (74-106) H D 11/10/16 18:00 Calcium 8.7 mg/dL (8.5-10.1) 11/10/16 18:00 Total Bilirubin 0.6 mg/dL (0.2-1.0) 11/10/16 18:00 AST 20 U/L (15-37) 11/10/16 18:00 ALT 26 U/L (12-78) 11/10/16 18:00 Alkaline Phosphatase 74 U/L (45-117) D 11/10/16 18:00 Creatine Kinase 69 IU/L (26-192) 11/10/16 18:00 Troponin I < 0.02 ng/ml (0.00-0.05) 11/10/16 18:00 Total Protein 7.5 g/dl (6.4-8.2) 11/10/16 18:00 Albumin 4.2 g/dl (3.4-5.0) 11/10/16 18:00 Lipase 478 U/L (73-393) H 11/10/16 18:00 BUN/creatinine is 30 over 1.2. This is an increase from previous. I suspect that this is dehydration. Patient has a persistent upper respiratory infection that I will treat as bronchitis. We'll initiate azithromycin. Patient was given a liter fluids with improvement of symptoms. Though the lipase is 478, the patient has no epigastric pain, no nausea, no vomiting. I do not suspect that this is pancreatitis at this time. I had spoken to the patient's, patient's and patient's son and discussed my reasoning. They verbalize understanding. They will follow up with Dr. Hodge as an outpatient. Discharge diagnosis: bronchitis, dehydration. I discussed the physical exam findings, ancillary test results and final diagnoses with the patient. I answered all of the patient's questions. The patient was satisfied with the care received and felt comfortable with the discharge plan and treatment plan. The patient will call their primary care physician within 24 hours to arrange follow-up and will return to the Emergency Department with any new, persistant or worsening symptoms. <Richard Shi - Last Filed: 11/11/16 12:59> *DC/Admit/Observation/Transfer - Attestations Scribe Attestion: 11/10/16 18:51 Documentation prepared by Elyssa Vela, acting as biomedical engineering internship for Richard Shi MD. <Elyssa Vela - Last Filed: 11/10/16 21:51> - Discharge Dispostion Admit: No <Richard Shi - Last Filed: 11/11/16 12:59> Diagnosis at time of Disposition: Dehydration, Bronchitis - Discharge Dispostion Disposition: HOME Condition at time of disposition: Stable - Prescriptions Prescriptions: Azithromycin 250 mg PO DAILY #4 tablet - Referrals Referrals: Chloé Hodge MD [Primary Care Provider] - - Patient Instructions Printed Discharge Instructions: DI for Dehydration -- Adult, DI for Acute Bronchitis Additional Instructions: Please drink plenty of fluids and rest. You will need to have your blood work repeated to make sure your kidney function improves. Take the azithromycin (antibiotic) as prescribed for the next 4 days. Follow up with your doctor. Call and schedule an appointment. Print Language: VIET[place]ESE
[2016-11-10 18:52] LABS: INR 1.08 (0.82-1.09); PROTHROMBIN TIME (PATIENT) 11.9 SEC (9.98-11.88)
[2016-11-10 19:02] LABS: ALBUMIN 4.2 g/dl (3.4-5.0); CALCIUM 8.7 mg/dL (8.5-10.1); CREATININE 1.2 mg/dL (0.55-1.02)
[2016-11-10 19:04] LABS: BILIRUBIN,TOTAL 0.6 mg/dL (0.2-1.0); TOT PROT 7.5 g/dl (6.4-8.2); TROPONIN I < 0.02 ng/ml (0.00-0.05)
--- NOTE | 2016-11-11 16:38 | EKG ---
Test Reason : Blood Pressure : / mmHG Vent. Rate : 081 BPM Atrial Rate : 081 BPM P-R Int : 136 ms QRS Dur : 088 ms QT Int : 374 ms P-R-T Axes : 065 025 047 degrees QTc Int : 434 ms NORMAL SINUS RHYTHM NORMAL ECG WHEN COMPARED WITH ECG OF 06-OCT-2016 21:34, NO SIGNIFICANT CHANGE WAS FOUND Confirmed by MD CRISPIN, SHELTON ([id number]) on 11/11/2016 4:38:35 PM Referred By: Confirmed By:SHELTON ROA MD
--- NOTE | 2016-11-16 08:12 | EKG ---
Test Reason : Blood Pressure : / mmHG Vent. Rate : 069 BPM Atrial Rate : 069 BPM P-R Int : 142 ms QRS Dur : 088 ms QT Int : 412 ms P-R-T Axes : 024 023 041 degrees QTc Int : 441 ms NORMAL SINUS RHYTHM NORMAL ECG WHEN COMPARED WITH ECG OF 10-NOV-2016 17:54, NO SIGNIFICANT CHANGE WAS FOUND Confirmed by ASHLEY BURGER MD ([id number]), editor at large JEAN CARLOS LOZA ([id number]) on 11/16/2016 8:12:23 AM Referred By: Confirmed By:ASHLEY BURGER MD
== END | disposition home or self-care (01) ==
LOC: JER 17:30
PROC: 3E0337Z Introduction of Electrolytic and Water Balance Substance into Peripheral Vein, Percutaneous Approach (ICD-10-PCS; principal; 2016-11-10)
DX: J40 Bronchitis, not specified as acute or chronic (principal); E86.0 Dehydration; I10 Essential (primary) hypertension; E11.8 Type 2 diabetes mellitus with unspecified complications; Z79.84 Long term (current) use of oral hypoglycemic drugs; E78.00 Pure hypercholesterolemia, unspecified
CPT/HCPCS: 36415; 71020-TC; 80053; 82550; 83690; 84484; 85025; 85610; 87804; 93005; 93010; 99284-25

== ENCOUNTER 2017-02-08 14:17 | Emergency (ER) | payer OTHER ==
[2017-02-08 14:38] VITALS: BP 103/60; PULSE 69; TEMP 98; BMI 23.3
[2017-02-08 14:48] LABS: URINE APPEARANCE CLEAR; URINE BILIRUBIN NEGATIVE (NEGATIVE); URINE BLOOD NEGATIVE (NEGATIVE); URINE COLOR LTYELLOW; URINE GLUCOSE (UA) NEGATIVE (NEGATIVE); URINE KETONE NEGATIVE (NEGATIVE); URINE NITRITE NEGATIVE (NEGATIVE); URINE PROTEIN NEGATIVE (NEGATIVE); URINE UROBILINOGEN 4.0 E.U/dl E.U./dl (0.2-1.0)
--- NOTE | 2017-02-08 14:50 | PDOC ---
History of Present Illness - General Chief Complaint: Nausea/Vomiting Stated Complaint: Nausea/Vomiting History Source: Patient, Spouse Exam Limitations: No Limitations - History of Present Illness Initial Comments: 66 y/o F with PMH of DM, HTN, hyperlipidemia, recently hospitalized for pancreatitis (Sep 2016) presents to ER w/ c/o nausea for the last 3 days. Pt has only been feeling nauseous with no vomiting. Nausea has remained the same over the last 3 days and not aggravated or alleviated with by any factors. Pt has been only eating very little due to the nausea. She states she had diarrhea 3 days ago but since then has had regular BMs and had a regular BM this morning. She denies any abdominal pain, fevers, chills, recent travel, sick contacts, change in diet (eats at home mostly), chest pain, sob, dysuria, blood in stool, blood in urine. Her symptoms feel similar to those as when she presented with pancreatitis last time. PCP: Dr. Chloé Hodge Past History - Past Medical History Allergies/Adverse Reactions: Allergies Allergy/AdvReac Type Severity Reaction Status Date / Time No Known Allergies Allergy Verified 02/08/17 14:24 Home Medications: Ambulatory Orders Alendronate Na [Fosamax] 70 mg PO DAILY 02/08/17 Aspirin [ASA -] 81 mg PO DAILY 02/08/17 Atorvastatin Ca [Lipitor] 40 mg PO DAILY 02/08/17 Calcium Citrate [Calcitrate] 950 mg PO DAILY 02/08/17 Cholecalciferol (Vitamin D3) [Vitamin D3 -] 50,000 unit PO WEEKLY 02/08/17 Enalapril Maleate [Vasotec] 20 mg PO DAILY 02/08/17 Glipizide [Glipizide ER] 10 mg PO DAILY 02/08/17 Linaclotide [Linzess] 145 mcg PO DAILY 02/08/17 Linagliptin/Metformin HCl [Jentadueto 2.5 mg-1000 mg Tab] 1 each PO DAILY Metoclopramide HCl 10 mg PO DAILY 02/08/17 Montelukast Na [Singulair -] 10 mg PO HS 02/08/17 Ranitidine [Zantac -] 150 mg PO DAILY 02/08/17 Diabetes: Yes HTN: Yes Hypercholesterolemia: Yes - Immunization History Immunization Up to Date: Yes - Psycho/Social/Smoking Cessation Hx Anxiety: No Suicidal Ideation: No Smoking Status: No Smoking History: Never smoked Number of Cigarettes Smoked Daily: 0 Hx Alcohol Use: No Drug/Substance Use Hx: No Substance Use Type: None Review of Systems - Review of Systems Able to Perform ROS?: Yes Comments:: GENERAL: Well-appearing, well-nourished. No apparent distress. HEENT: Normocephalic, atraumatic. EOM intact. CARDIOVASCULAR: Normal S1, S2. Regular rate and rhythm. 1/6 systolic murmur best heard in aortic region. PULMONARY: Clear to auscultation bilaterally. ABDOMEN: +Vance sign with mild tenderness/discomfort Soft, non-distended, normoactive bowel sounds. EXTREMITIES: Normal ROM in all four extremities. No gross deformities. SKIN: Warm, dry. No rash NEUROLOGICAL: No focal neurological deficits. *Physical Exam - Vital Signs Last Vital Signs Temp Pulse Resp BP Pulse Ox 98.0 F 69 18 103/60 99 02/08/17 14:22 02/08/17 14:22 02/08/17 14:22 02/08/17 14:22 02/08/17 14:22 ED Treatment Course - LABORATORY CBC & Chemistry Diagram: 02/08/17 16:00 02/08/17 16:00 Medical Decision Making - Medical Decision Making 02/08/17 14:58 Will work up patient for nausea. Pt's feels symptomatically the same as she did with pancreatitis in the past and has positive murphys sign. Will r/o pancreatitis, cholecystitis, gastritis. Will order CBCD, CMP, Lipase, UA 02/08/17 16:32 Urine urobilinogen elevated at 4.0 Will add direct bili to blood work. CBC and CMP still pending EKG: NSR @ 67 bpm; QTc [address] segment changes noted 02/08/17 17:37 Lipase 400, WBC 9, glucose [address] Hartmann covering for Dr. Cruz. Pt to follow up as outpatient with GI to further work up and can be discharged with marisol. I discussed this the plan with the patient and strongly emphasized that she would need follow up to rule including other things, cancer of the pancreas. She understands the plan and affirmed that she would follow up stating she is going to call Dr. Cruz tomorrow morning to make an appointment. Pt to be discharged with zofran. *DC/Admit/Observation/Transfer Diagnosis at time of Disposition: Gastritis, Nausea alone - Discharge Dispostion Disposition: HOME Condition at time of disposition: Stable - Referrals Referrals: Chloé Hodge MD [Primary Care Provider] - Charanjit Cruz MD [Staff Physician] - - Patient Instructions Printed Discharge Instructions: DI for Nausea -- Adult Additional Instructions: You must follow up with Dr. Cruz as was discussed in the emergency room. Call tomorrow morning to make an appointment to see him. You will be able to have further work up done in his office. You have been prescribed zofran to take for nausea. You must also follow up with your primary care doctor, Dr. Hodge. If your symptoms worsen, come back to the emergency room.
[2017-02-08 15:01] LABS: URINE LEUK ESTERASE 1+ (NEGATIVE)
[2017-02-08 15:04] LABS: URINE MUCUS RARE; URINE RBC <1 /hpf (0-3); URINE WBC 1 /hpf (3-5)
[2017-02-08] MEDS ORDERED: SODIUM CHLORIDE 1,000 ML IV ONE (15:25)
--- NOTE | 2017-02-08 15:43 | PDOC ---
Attending Attestation - Resident Resident Name: Tong Garcia - ED Attending Attestation I have performed the following: I have examined & evaluated the patient, The case was reviewed & discussed with the resident, I agree w/resident's findings & plan, Exceptions are as noted - HPI HPI: 02/08/17 15:41 66-year-old female with no severe past medical history other than pancreatitis of unclear etiology presents with 2-3 days of nausea and anorexia but no pain or vomiting. Denies any excessive NSAID use, alcohol intake. - Physicial Exam PE: 02/08/17 15:43 Vital signs normal. No pallor or jaundice. Abdomen benign - Medical Decision Making 02/08/17 15:43 Patient seen and evaluated with the resident. I agree with the overall evaluation, assessment, and management with the following summary of visit: 66-year-old female with history of pancreatitis of unknown etiology presents with similar symptoms of nausea and anorexia. Abdomen is benign. Check labs including LFTs and lipase EKG, urinalysis IVF Reassess 02/08/17 16:33 Patient was signed out to the oncoming ED physician to follow-up the results, reassess the patient, and dispo accordingly. Dr. Garcia still following.
[2017-02-08 16:37] LABS: BASOPHIL 0.6 % (0-2.0); EOSINOPHIL 7.5 % (0-4.5); MCH 31.2 pg (25.7-33.7); MCHC 33.4 g/dl (32.0-36.0); MEAN CELL VOLUME 93.4 fl (80-96); MEAN PLT VOLUME 7.9 fl (7.5-11.1); NEUTROPHILS 54.3 % (42.8-82.8); PLATELET COUNT 278 K/MM3 (134-434); RDW 12.9 % (11.6-15.6)
[2017-02-08 17:13] LABS: ALBUMIN 4.3 g/dl (3.4-5.0); BILIRUBIN,TOTAL 0.5 mg/dL (0.2-1.0); CALCIUM 9.5 mg/dL (8.5-10.1); COCKROFT - GAULT 42.245; CREATININE 1.2 mg/dL (0.55-1.02); TOT PROT 7.8 g/dl (6.4-8.2)
[2017-02-08] MEDS ORDERED: ONDANSETRON 8 MG TABLET (FP) PO ONE ×2 (17:43→17:47)
--- NOTE | 2017-02-09 13:08 | EKG ---
Test Reason : Blood Pressure : / mmHG Vent. Rate : 067 BPM Atrial Rate : 067 BPM P-R Int : 152 ms QRS Dur : 086 ms QT Int : 424 ms P-R-T Axes : 022 002 038 degrees QTc Int : 448 ms NORMAL SINUS RHYTHM NORMAL ECG WHEN COMPARED WITH ECG OF 10-NOV-2016 20:31, NO SIGNIFICANT CHANGE WAS FOUND Confirmed by CECIL ALEJO MD ([id number]) on 02/09/2017 1:07:45 PM Referred By: Confirmed By:CECIL ALEJO MD
== END 2017-02-08 17:50 | disposition home or self-care (01) ==
LOC: JER 14:17
PROC: 3E0337Z Introduction of Electrolytic and Water Balance Substance into Peripheral Vein, Percutaneous Approach (ICD-10-PCS; principal; 2017-02-08)
DX: K29.70 Gastritis, unspecified, without bleeding (principal); I10 Essential (primary) hypertension; E11.9 Type 2 diabetes mellitus without complications; Z79.84 Long term (current) use of oral hypoglycemic drugs; E78.00 Pure hypercholesterolemia, unspecified
CPT/HCPCS: 36415; 80053; 81003; 81015; 82248; 83690; 85025; 93005; 93010; 99283-25

== ENCOUNTER 2017-02-17 12:22 | Inpatient (IN) | payer OTHER ==
--- NOTE | 2017-02-17 13:49 | PDOC ---
History of Present Illness - History of Present Illness Initial Comments: 02/17/17 15:00 Patient is a 66 year old female with significant medical hx of HTN, HLD, DM and pancreatitis, who has been sent to the ED with by PCP for pancreatitis. Patient doesn't offer any complaints except for mild, intermittent, mid upper back pain that is non-radiating. Patient denies any nausea, vomiting, diarrhea, abdominal pain, fever, or chills. Patient is tolerating normal diet without difficulty. Today she was was seen by PCP who nancy blood work and found an abnormal lipase. The patient was referred to ED for admission. Allergies: None reported. Past Surgical History: None reported. Social History: Non smoker. Denies alcohol or drug use. PCP: Padmini Painter MD <Chioma Kee - Last Filed: 02/17/17 15:00> <Rafia Vigil - Last Filed: 02/17/17 16:34> - General Chief Complaint: Pain, Acute Stated Complaint: SENT BY PCP Time Seen by Provider: 02/17/17 13:49 Past History <Chioma Kee - Last Filed: 02/17/17 15:00> - Past Medical History Diabetes: Yes HTN: Yes Hypercholesterolemia: Yes - Immunization History Immunization Up to Date: Yes - Psycho/Social/Smoking Cessation Hx Anxiety: No Suicidal Ideation: No Smoking Status: No Smoking History: Never smoked Number of Cigarettes Smoked Daily: 0 Hx Alcohol Use: No Drug/Substance Use Hx: No Substance Use Type: None <Rafia Vigil - Last Filed: 02/17/17 16:34> - Past Medical History Allergies/Adverse Reactions: Allergies Allergy/AdvReac Type Severity Reaction Status Date / Time No Known Allergies Allergy Verified 02/17/17 12:27 Home Medications: Ambulatory Orders Alendronate Na [Fosamax] 70 mg PO DAILY 02/08/17 Aspirin [ASA -] 81 mg PO DAILY 02/08/17 Atorvastatin Ca [Lipitor] 40 mg PO DAILY 02/08/17 Calcium Citrate [Calcitrate] 950 mg PO DAILY 02/08/17 Cholecalciferol (Vitamin D3) [Vitamin D3 -] 50,000 unit PO WEEKLY 02/08/17 Enalapril Maleate [Vasotec] 20 mg PO DAILY 02/08/17 Glipizide [Glipizide ER] 10 mg PO DAILY 02/08/17 Linaclotide [Linzess] 145 mcg PO DAILY 02/08/17 Linagliptin/Metformin HCl [Jentadueto 2.5 mg-1000 mg Tab] 1 each PO DAILY Metoclopramide HCl 10 mg PO DAILY 02/08/17 Montelukast Na [Singulair -] 10 mg PO HS 02/08/17 Ondansetron [Zofran *Odt*] 8 mg SL BID PRN #14 od.tablet 02/08/17 Ranitidine [Zantac -] 150 mg PO DAILY 02/08/17 Review of Systems - Review of Systems Comments:: 02/17/17 15:03 GENERAL/CONSTITUTIONAL: No fever or chills. No weakness. HEAD, EYES, EARS, NOSE AND THROAT: No change in vision. No ear pain or discharge. No sore throat. CARDIOVASCULAR: No chest pain or shortness of breath. RESPIRATORY: No cough, wheezing, or hemoptysis. GASTROINTESTINAL: No nausea, vomiting, diarrhea or constipation. GENITOURINARY: No dysuria, frequency, or change in urination. MUSCULOSKELETAL: Mid upper back pain. No joint or muscle swelling or pain. No neck pain. ENDOCRINE: No increased thirst. No abnormal weight change. SKIN: No rash NEUROLOGIC: No headache, vertigo, loss of consciousness, or change in strength/ sensation. <Chioma Kee - Last Filed: 02/17/17 15:00> *Physical Exam - Vital Signs Last Vital Signs Temp Pulse Resp BP Pulse Ox 97.8 F 61 18 140/50 97 02/17/17 12:25 02/17/17 12:25 02/17/17 12:25 02/17/17 12:25 02/17/17 12:25 - Physical Exam Comments: 02/17/17 15:04 GENERAL: Awake, alert, and fully oriented, in no acute distress HEAD: No signs of trauma EYES: PERRLA, EOMI, sclera anicteric, conjunctiva clear ENT: Auricles normal inspection, hearing grossly normal, nares patent, oropharynx clear without exudates. Moist mucosa NECK: Normal ROM, supple, no lymphadenopathy, JVD, or masses LUNGS: Breath sounds equal, clear to auscultation bilaterally. No wheezes, and no crackles HEART: Regular rate and rhythm, normal S1 and S2, no murmurs, rubs or gallops ABDOMEN: Soft, nontender, normoactive bowel sounds. No guarding, no rebound. No masses EXTREMITIES: Normal range of motion, no edema. No clubbing or cyanosis. No cords, erythema, or tenderness NEUROLOGICAL: Cranial nerves II through XII grossly intact. Normal speech, normal gait SKIN: Warm, Dry, normal turgor, no rashes or lesions noted. HEMATOLOGIC/LYMPHATIC: No anemia, easy bleeding, or history of blood clots. ALLERGIC/IMMUNOLOGIC: No hives or skin allergy. <Chioma Kee - Last Filed: 02/17/17 15:00> - Vital Signs Last Vital Signs Temp Pulse Resp BP Pulse Ox 97.8 F 61 18 140/50 97 02/17/17 12:25 02/17/17 12:25 02/17/17 12:25 02/17/17 12:25 02/17/17 12:25 <Rafia Vigil - Last Filed: 02/17/17 16:34> ED Treatment Course - LABORATORY CBC & Chemistry Diagram: 02/17/17 15:15 02/17/17 15:15 <Rafia Vigil - Last Filed: 02/17/17 16:34> Medical Decision Making - Medical Decision Making 02/17/17 15:58 Patient presents to the ED after sent in by PMD for elevated lipase. PMD requests admission for ERCP. Patient is well appearing and denies complaints except for intermittent upper back pain that is not present now. Denies abdominal pain, nausea or vomiting. Tolerating her normal diet at home. Patient is requesting to eat and to go home. Will recheck labs--if lipase is elevated, will admit. If lipase is not elevated, will discuss with PMD. <Rafia Vigil - Last Filed: 02/17/17 16:34> *DC/Admit/Observation/Transfer - Attestations Scribe Attestion: 02/17/17 15:04 Documentation prepared by Chioma Kee, acting as biomedical equipment technician for Rafia Vigil MD. <Chioma Kee - Last Filed: 02/17/17 15:00> - Discharge Dispostion Admit: Yes <Rafia Vigil - Last Filed: 02/17/17 16:34> Diagnosis at time of Disposition: Acute pancreatitis, Pancreatitis - Discharge Dispostion Condition at time of disposition: Good - Referrals Referrals: Padmini Painter MD [Primary Care Provider] -
[2017-02-17 15:22] LABS: BASOPHIL 0.6 % (0-2.0); EOSINOPHIL 4.5 % (0-4.5); MCH 31.2 pg (25.7-33.7); MCHC 33.5 g/dl (32.0-36.0); MEAN CELL VOLUME 93.3 fl (80-96); MEAN PLT VOLUME 6.9 fl (7.5-11.1); NEUTROPHILS 60.1 % (42.8-82.8); PLATELET COUNT 204 K/MM3 (134-434); WHITE BLOOD COUNT 6.8 K/mm3 (4.0-10.0)
[2017-02-17 15:47] LABS: ALBUMIN 4.3 g/dl (3.4-5.0); ALK PHOS 50 U/L (45-117); ANION GAP 10 (8-16); BILIRUBIN,TOTAL 0.5 mg/dL (0.2-1.0); CALCIUM 9.3 mg/dL (8.5-10.1); CO2 24 mmol/L (21-32); COCKROFT - GAULT 63.325; CREATININE 0.8 mg/dL (0.55-1.02); GLUCOSE,RANDOM 85 mg/dL (74-106); SGOT/AST 20 U/L (15-37); SGPT/ALT 27 U/L (12-78); TOT PROT 7.4 g/dl (6.4-8.2)
[2017-02-17] MEDS ORDERED: ONDANSETRON 4 MG/2 ML VIAL IVPB PRN (18:38)
[2017-02-17] MEDS ORDERED: METOCLOPRAMIDE HCL INJECTION 10 MG/2 ML VIAL IVPB PRN (18:38)
[2017-02-17] MEDS ORDERED: PANTOPRAZOLE SODIUM 40 MG in SODIUM CHLORIDE 100 ML IVPB SCH (22:00)
[2017-02-17] MEDS: D5-1/2NS+20 MEQ KCL - 1,000 ML IV SCH (23:34)
[2017-02-17] MEDS: HEPARIN NA (PORCINE) 5,000 UNITS/ML 1ML VIAL SQ SCH (23:34)
[2017-02-17] MEDS: INSULIN SLIDING SCALE (NOVOLOG) 1 VIAL SQ SCH (23:35)
[2017-02-17] MEDS: MONTELUKAST NA 10 MG TABLET PO SCH (23:35)
[2017-02-17 23:56] VITALS: BMI 23.0
[2017-02-18] MEDS: ALBUTEROL SO4 0.083% IH SOL 2.5 MG/3 ML VIAL.NEB. NEB SCH ×4 (00:20→17:48)
[2017-02-18] MEDS: PANTOPRAZOLE SODIUM 40 MG/100 ML PRE-DOCKED IVPB SCH ×3 (00:36→21:25)
[2017-02-18] MEDS: INSULIN SLIDING SCALE (NOVOLOG) 1 VIAL SQ SCH ×4 (06:04→22:03)
[2017-02-18 08:02] LABS: BASOPHIL 0.5 % (0-2.0); EOSINOPHIL 7.7 % (0-4.5); MCH 31.6 pg (25.7-33.7); MCHC 33.9 g/dl (32.0-36.0); MEAN CELL VOLUME 93.3 fl (80-96); MEAN PLT VOLUME 7.1 fl (7.5-11.1); NEUTROPHILS 38.8 % (42.8-82.8); PLATELET COUNT 182 K/MM3 (134-434); RDW 12.4 % (11.6-15.6); WHITE BLOOD COUNT 5.2 K/mm3 (4.0-10.0)
[2017-02-18 08:34] LABS: AMYLASE 88 U/L (25-115); ANION GAP 8 (8-16); BILIRUBIN,TOTAL 0.5 mg/dL (0.2-1.0); CO2 27 mmol/L (21-32); CREATININE 0.9 mg/dL (0.55-1.02); GLUCOSE,RANDOM 137 mg/dL (74-106); SGOT/AST 20 U/L (15-37); SGPT/ALT 24 U/L (12-78)
[2017-02-18 08:37] LABS: ALK PHOS 49 U/L (45-117); TROPONIN I < 0.02 ng/ml (0.00-0.05)
--- NOTE | 2017-02-18 08:49 | HP ---
Admitting History and Physical - Admission History of Present Illness: 66 year old female with significant medical hx of HTN, HLD, DM and pancreatitis , who has been sent to the ED with by PCP for pancreatitis. Patient was seen in dr pino office for iterascapular pain non-radiating. Patient has been intermittent pt with previous admission for pancreatitis--ct scan done with corornary calcifications this am no cp or back pain - Past Medical History Cardiovascular: Yes: HTN, Hyperlipdemia Gastrointestinal: Yes: GERD, Pancreatitis Endocrine: Yes: Diabetes Mellitus - Smoking History Smoking history: Never smoked Aproximately how many cigarettes per day: 0 - Alcohol/Substance Use Hx Alcohol Use: No Home Medications - Allergies Allergies/Adverse Reactions: Allergies Allergy/AdvReac Type Severity Reaction Status Date / Time No Known Allergies Allergy Verified 02/17/17 12:27 - Home Medications Home Medications: Ambulatory Orders Alendronate Na [Fosamax] 70 mg PO DAILY 02/08/17 Aspirin [ASA -] 81 mg PO DAILY 02/08/17 Atorvastatin Ca [Lipitor] 40 mg PO DAILY 02/08/17 Calcium Citrate [Calcitrate] 950 mg PO DAILY 02/08/17 Cholecalciferol (Vitamin D3) [Vitamin D3 -] 50,000 unit PO WEEKLY 02/08/17 Enalapril Maleate [Vasotec] 20 mg PO DAILY 02/08/17 Glipizide [Glipizide ER] 10 mg PO DAILY 02/08/17 Linaclotide [Linzess] 145 mcg PO DAILY 02/08/17 Linagliptin/Metformin HCl [Jentadueto 2.5 mg-1000 mg Tab] 1 each PO DAILY Metoclopramide HCl 10 mg PO DAILY 02/08/17 Montelukast Na [Singulair -] 10 mg PO HS 02/08/17 Ondansetron [Zofran *Odt*] 8 mg SL BID PRN #14 od.tablet 02/08/17 Ranitidine [Zantac -] 150 mg PO DAILY 02/08/17 Review of Systems - Review of Systems HENT: denies: Ear Pain Cardiovascular: reports: Other (iterscapular pain) Respiratory: denies: SOB, SOB on Exertion Gastrointestinal: reports: Other (epigastric and back pain) Genitourinary: reports: No Symptoms Neurological: reports: No Symptoms Physical Examination Vital Signs: Vital Signs Temperature 98.2 F 02/18/17 08:01 Pulse Rate 62 02/18/17 08:01 Respiratory Rate 18 02/18/17 08:01 Blood Pressure 116/56 02/18/17 08:01 O2 Sat by Pulse Oximetry (%) 99 02/17/17 22:38 Cardiovascular: Yes: Regular Rate and Rhythm Respiratory: Yes: Regular, CTA Bilaterally Gastrointestinal: Yes: Normal Bowel Sounds, Soft. No: Tenderness Edema: No Labs: CBC, BMP 02/18/17 06:30 02/18/17 06:30 Imaging - Results Cat Scan: Report Reviewed (clacifications) Problem List - Problems (1) Interscapular pain Assessment/Plan: r/o cad ce negative will need stress test cardio consult on statin asa Code(s): M54.89 - OTHER DORSALGIA (2) Coronary artery calcification seen on CAT scan Assessment/Plan: as above Code(s): I25.10 - ATHSCL HEART DISEASE OF [place] CORONARY ARTERY W/O ANG PCTRS (3) Pancreatitis Assessment/Plan: h/o of previous attack--now with elevated lipase--normaizing rapidlt ct neg gi consult Code(s): K85.9 - ACUTE PANCREATITIS, UNSPECIFIED * DO NOT USE * (4) Diabetes Assessment/Plan: resume meds diet and observe Code(s): E11.9 - TYPE 2 DIABETES MELLITUS WITHOUT COMPLICATIONS Qualifiers: Diabetes mellitus type: type 2 Diabetes mellitus complication status: without complication (5) Hyperlipemia Assessment/Plan: on lipitor Code(s): E78.5 - HYPERLIPIDEMIA, UNSPECIFIED (6) Chronic GERD Assessment/Plan: on ppi and reglan Code(s): K21.9 - GASTRO-ESOPHAGEAL REFLUX DISEASE WITHOUT ESOPHAGITIS
[2017-02-18] MEDS ORDERED: LINACLOTIDE 145 MCG PO SCH (10:00)
[2017-02-18] MEDS ORDERED: PATIENT'S OWN MEDICATION (NON-FORMULARY) (Enalapril Maleate [Vasotec] 20 MG) PO SCH (10:00)
[2017-02-18] MEDS ORDERED: PT OWN MED DRAWER 7, Y5N ONE (10:31)
[2017-02-18] MEDS: ASPIRIN 81 MG CHEWABLE TABLETS PO SCH (10:34)
[2017-02-18] MEDS: ATORVASTATIN CA 40 MG TABLET (FP) PO SCH (10:34)
[2017-02-18] MEDS: HEPARIN NA (PORCINE) 5,000 UNITS/ML 1ML VIAL SQ SCH ×2 (10:34→21:25)
[2017-02-18] MEDS: ENALAPRIL MALEATE 10 MG TABLET (FP) PO SCH (11:17)
--- NOTE | 2017-02-18 16:15 | CON.CARD ---
Consult Consult Specialty:: Cardiololgy Reason for Consultation:: Abdominal pain - History of Present Illness Chief Complaint: Mild upper back pain History of Present Illness: This is a 66 year old female with a PMH of HTN, HLD, DM and pancreatitis, who has been sent to the ED with by PCP for pancreatitis. Presently she is only complaining of mild upper back pain. Abnormal lipase noted. She denies chest pain, palpitations, and SOB. - Past Medical History Cardio/Vascular: Yes: HTN, Hyperlipdemia Gastrointestinal: Yes: GERD, Pancreatitis Endocrine: Yes: Diabetes Mellitus - Alcohol/Substance Use Hx Alcohol Use: No - Smoking History Smoking history: Never smoked Aproximately how many cigarettes per day: 0 Home Medications - Allergies Allergies/Adverse Reactions: Allergies Allergy/AdvReac Type Severity Reaction Status Date / Time No Known Allergies Allergy Verified 02/17/17 12:27 - Home Medications Home Medications: Ambulatory Orders Alendronate Na [Fosamax] 70 mg PO DAILY 02/08/17 Aspirin [ASA -] 81 mg PO DAILY 02/08/17 Atorvastatin Ca [Lipitor] 40 mg PO DAILY 02/08/17 Calcium Citrate [Calcitrate] 950 mg PO DAILY 02/08/17 Cholecalciferol (Vitamin D3) [Vitamin D3 -] 50,000 unit PO WEEKLY 02/08/17 Enalapril Maleate [Vasotec] 20 mg PO DAILY 02/08/17 Glipizide [Glipizide ER] 10 mg PO DAILY 02/08/17 Linaclotide [Linzess] 145 mcg PO DAILY 02/08/17 Linagliptin/Metformin HCl [Jentadueto 2.5 mg-1000 mg Tab] 1 each PO DAILY Metoclopramide HCl 10 mg PO DAILY 02/08/17 Montelukast Na [Singulair -] 10 mg PO HS 02/08/17 Ondansetron [Zofran *Odt*] 8 mg SL BID PRN #14 od.tablet 02/08/17 Ranitidine [Zantac -] 150 mg PO DAILY 02/08/17 Review of Systems Findings/Remarks: As per HPI Vital Signs: Vital Signs Temperature 98.1 F 02/18/17 15:06 Pulse Rate 63 02/18/17 15:06 Respiratory Rate 18 02/18/17 15:06 Blood Pressure 96/59 02/18/17 15:06 O2 Sat by Pulse Oximetry (%) 98 02/18/17 09:00 Constitutional: Yes: Well Nourished, No Distress Respiratory: Yes: CTA Bilaterally Gastrointestinal: Yes: Soft Cardiovascular: Yes: Regular Rate and Rhythm Heart Sounds: Yes: S1, S2 (No MRHG) Extremities: Yes: WNL Edema: No Neurological: Yes: Alert, Oriented - Other Data Labs, Other Data: CBC, BMP 02/18/17 06:30 02/18/17 06:30 Troponin, BNP 02/17/17 02/18/17 20:00 06:30 Troponin I < 0.02 < 0.02 Troponin, BNP 02/17/17 02/18/17 20:00 06:30 Troponin I < 0.02 < 0.02 Assessment/Plan Presently no chest pain, SOB, or palpitations. No cardiac complaints, only mild upper back pain. Given risk factors, would recommend an out-patient, noninvasive cardiac evaluation including stress testing and an electrocardiogram. Agree with: ASA 81 mg PO daily Lipitor 40 mg PO daily Vasotec 20 mg PO daily
[2017-02-18] MEDS: D5-1/2NS+20 MEQ KCL - 1,000 ML IV SCH ×2 (16:19→21:24)
[2017-02-18] MEDS: metFORMIN HCL 500 MG TABLET (FP) PO SCH (16:46)
--- NOTE | 2017-02-18 18:28 | CON.GI ---
Consult Consult Specialty:: GI Referred by:: Dr Painter Reason for Consultation:: pancreatitis - History of Present Illness Chief Complaint: Abdominal pain with gas and bloating History of Present Illness: 66 F with h/o HLD, HTN, DM and pancreatitis (? secondaryu to high triglycerides ) sent by PCP for evaluation of symptoms suggesting recurrent pancreatitis. At this time, pain has resolved and enzymes normal. She states she had significant bloating that occurs intermittently. - History Source History Provided By: Patient, Family Member Limitations to Obtaining History: No Limitations - Past Medical History Cardio/Vascular: Yes: HTN, Hyperlipdemia Gastrointestinal: Yes: GERD, Pancreatitis Endocrine: Yes: Diabetes Mellitus - Alcohol/Substance Use Hx Alcohol Use: No - Smoking History Smoking history: Never smoked Aproximately how many cigarettes per day: 0 Home Medications - Allergies Allergies/Adverse Reactions: Allergies Allergy/AdvReac Type Severity Reaction Status Date / Time No Known Allergies Allergy Verified 02/17/17 12:27 - Home Medications Home Medications: Ambulatory Orders Alendronate Na [Fosamax] 70 mg PO DAILY 02/08/17 Aspirin [ASA -] 81 mg PO DAILY 02/08/17 Atorvastatin Ca [Lipitor] 40 mg PO DAILY 02/08/17 Calcium Citrate [Calcitrate] 950 mg PO DAILY 02/08/17 Cholecalciferol (Vitamin D3) [Vitamin D3 -] 50,000 unit PO WEEKLY 02/08/17 Enalapril Maleate [Vasotec] 20 mg PO DAILY 02/08/17 Glipizide [Glipizide ER] 10 mg PO DAILY 02/08/17 Linaclotide [Linzess] 145 mcg PO DAILY 02/08/17 Linagliptin/Metformin HCl [Jentadueto 2.5 mg-1000 mg Tab] 1 each PO DAILY Metoclopramide HCl 10 mg PO DAILY 02/08/17 Montelukast Na [Singulair -] 10 mg PO HS 02/08/17 Ondansetron [Zofran *Odt*] 8 mg SL BID PRN #14 od.tablet 02/08/17 Ranitidine [Zantac -] 150 mg PO DAILY 02/08/17 Physical Exam-GI Vital Signs: Vital Signs Temperature 98.1 F 02/18/17 15:06 Pulse Rate 63 02/18/17 15:06 Respiratory Rate 18 02/18/17 15:06 Blood Pressure 96/59 02/18/17 15:06 O2 Sat by Pulse Oximetry (%) 98 02/18/17 09:00 Constitutional: Yes: Well Nourished, No Distress HENT: Yes: Normocephalic Cardiovascular: Yes: Regular Rate and Rhythm Respiratory: Yes: CTA Bilaterally Gastrointestinal Inspection: Yes: WNL ...Auscultate: Yes: Normoactive Bowel Sounds ...Palpate: Yes: Soft. 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
--- NOTE | 2017-02-18 19:15 | EKG ---
Test Reason : Blood Pressure : / mmHG Vent. Rate : 061 BPM Atrial Rate : 061 BPM P-R Int : 150 ms QRS Dur : 106 ms QT Int : 444 ms P-R-T Axes : 023 024 045 degrees QTc Int : 446 ms NORMAL SINUS RHYTHM NORMAL ECG WHEN COMPARED WITH ECG OF 17-FEB-2017 20:04, NO SIGNIFICANT CHANGE WAS FOUND Confirmed by MAGGIE NORIEGA MD ([id number]) on 02/18/2017 7:15:11 PM Referred By: Wali ARIZMENDI Confirmed By:MAGGIE NORIEGA MD
[2017-02-18] MEDS: MONTELUKAST NA 10 MG TABLET PO SCH (21:25)
[2017-02-19] MEDS: ALBUTEROL SO4 0.083% IH SOL 2.5 MG/3 ML VIAL.NEB. NEB SCH ×3 (00:06→11:31)
[2017-02-19 00:10] VITALS: TEMP 97.8
[2017-02-19] MEDS ORDERED: PT OWN MED DRAWER 7, Y5N ONE (05:52)
[2017-02-19] MEDS: metFORMIN HCL 500 MG TABLET (FP) PO SCH (06:08)
[2017-02-19] MEDS: D5-1/2NS+20 MEQ KCL - 1,000 ML IV SCH (06:08)
[2017-02-19] MEDS: INSULIN SLIDING SCALE (NOVOLOG) 1 VIAL SQ SCH (06:09)
[2017-02-19] MEDS ORDERED: sitaGLIPtin PHOSPHATE 50 MG TABLET PO SCH (07:00)
[2017-02-19 08:27] LABS: BASOPHIL 0.5 % (0-2.0); EOSINOPHIL 8.4 % (0-4.5); MCHC 33.9 g/dl (32.0-36.0); MEAN CELL VOLUME 94.3 fl (80-96); MEAN PLT VOLUME 7.1 fl (7.5-11.1); NEUTROPHILS 40.6 % (42.8-82.8); PLATELET COUNT 170 K/MM3 (134-434); RDW 12.7 % (11.6-15.6); WHITE BLOOD COUNT 5.1 K/mm3 (4.0-10.0)
[2017-02-19 08:29] VITALS: BP 114/58; PULSE 65
--- NOTE | 2017-02-19 09:23 | DS ---
Physical Examination Vital Signs: Vital Signs Temperature 97.8 F 02/19/17 08:00 Pulse Rate 65 02/19/17 08:00 Respiratory Rate 18 02/19/17 08:00 Blood Pressure 114/58 02/19/17 08:00 O2 Sat by Pulse Oximetry (%) 98 02/19/17 08:37 Findings/Remarks: no pain wants to go home Cardiovascular: Yes: Regular Rate and Rhythm Respiratory: Yes: Regular, CTA Bilaterally Gastrointestinal: Yes: Normal Bowel Sounds, Soft Labs: CBC, BMP 02/19/17 06:20 02/18/17 06:30 Discharge Summary Reason For Visit: PANCREATITIS Current Active Problems Chronic GERD (Acute) Coronary artery calcification seen on CAT scan (Acute) Hyperlipemia (Acute) Interscapular pain (Acute) Pancreatitis (Acute) Pancreatitis, acute (Acute) Hospital Course: 66 year old female with significant medical hx of HTN, HLD, DM and pancreatitis , who has been sent to the ED with by PCP for pancreatitis. Patient was seen in dr hodge office for iterascapular pain non-radiating. Patient has been intermittent pt with previous admission for pancreatitis--ct scan done with corornary calcifications this am no cp or back pain - Past Medical History Cardiovascular: Yes: HTN, Hyperlipdemia Gastrointestinal: Yes: GERD, Pancreatitis Endocrine: Yes: Diabetes Mellitus - Problems (1) Interscapular pain Assessment/Plan: r/o cad ce negative will need stress test cardio consult Assessment/Plan Presently no chest pain, SOB, or palpitations. No cardiac complaints, only mild upper back pain. Given risk factors, would recommend an out-patient, noninvasive cardiac evaluation including stress testing and an electrocardiogram. 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 insufficiency Code(s): K85.9 - ACUTE PANCREATITIS, UNSPECIFIED * DO NOT USE * (4) Diabetes Assessment/Plan: resume meds diet and observe Code(s): E11.9 - TYPE 2 DIABETES MELLITUS WITHOUT COMPLICATIONS Qualifiers: Diabetes mellitus type: type 2 Diabetes mellitus complication status: without complication (5) Hyperlipemia Assessment/Plan: on lipitor Code(s): E78.5 - HYPERLIPIDEMIA, UNSPECIFIED (6) Chronic GERD Assessment/Plan: on ppi and reglan Code(s): K21.9 - GASTRO-ESOPHAGEAL REFLUX DISEASE WITHOUT ESOPHAGITIS - Instructions Diet, Activity, Other Instructions: follow up with dr hodge for blood test you need to schedule a stress test with dr hodge Referrals: Padmini Painter MD [Primary Care Provider] - Chloé Hodge MD [Staff Physician] - 1 Week Disposition: HOME - Home Medications Comprehensive Discharge Medication List: Ambulatory Orders Aspirin [ASA -] 81 mg PO DAILY 02/08/17 Atorvastatin Ca [Lipitor] 40 mg PO DAILY 02/08/17 Enalapril Maleate [Vasotec] 20 mg PO DAILY 02/08/17 Glipizide [Glipizide ER] 10 mg PO DAILY 02/08/17 Linaclotide [Linzess] 145 mcg PO DAILY 02/08/17 Linagliptin/Metformin HCl [Jentadueto 2.5 mg-1000 mg Tab] 1 each PO DAILY Montelukast Na [Singulair -] 10 mg PO HS 02/08/17 Ondansetron [Zofran *Odt*] 8 mg SL BID PRN #14 od.tablet 02/08/17 Ranitidine [Zantac -] 150 mg PO DAILY 02/08/17 Metoclopramide HCl 10 mg PO BID #60 tab 02/19/17 Pantoprazole Sodium [Protonix -] 40 mg PO DAILY #30 tablet.ec 02/19/17
[2017-02-19] MEDS: PANTOPRAZOLE SODIUM 40 MG/100 ML PRE-DOCKED IVPB SCH (09:32)
[2017-02-19] MEDS: ASPIRIN 81 MG CHEWABLE TABLETS PO SCH (09:32)
[2017-02-19] MEDS: ATORVASTATIN CA 40 MG TABLET (FP) PO SCH (09:32)
[2017-02-19] MEDS: HEPARIN NA (PORCINE) 5,000 UNITS/ML 1ML VIAL SQ SCH (09:32)
[2017-02-19] MEDS: ENALAPRIL MALEATE 10 MG TABLET (FP) PO SCH (10:03)
--- NOTE | 2017-02-19 16:29 | EKG ---
Test Reason : Blood Pressure : / mmHG Vent. Rate : 062 BPM Atrial Rate : 062 BPM P-R Int : 150 ms QRS Dur : 094 ms QT Int : 430 ms P-R-T Axes : 030 040 052 degrees QTc Int : 436 ms NORMAL SINUS RHYTHM NORMAL ECG WHEN COMPARED WITH ECG OF 08-FEB-2017 16:22, NO SIGNIFICANT CHANGE WAS FOUND Confirmed by MAGGIE NORIEGA MD ([id number]) on 02/19/2017 4:29:06 PM Referred By: Confirmed By:MAGGIE NORIEGA MD
== END 2017-02-19 11:56 | disposition home or self-care (01) | DRG 440 ==
LOC: JER 12:22 → JERBED 16:35 → J6S 22:07
PROVIDERS: ADMIT Family Medicine; ATTEND Family Medicine
DX: K85.80 Other acute pancreatitis without necrosis or infection (principal); E88.81 Metabolic syndrome and other insulin resistance; I25.10 Atherosclerotic heart disease of native coronary artery without angina pectoris; E11.9 Type 2 diabetes mellitus without complications; E78.5 Hyperlipidemia, unspecified; M54.89 Other dorsalgia; K21.9 Gastro-esophageal reflux disease without esophagitis; I10 Essential (primary) hypertension
CPT/HCPCS: 36415; 71275-TC; 74177-TC; 80053; 82150; 83690; 84484; 85025; 93005; 93010; 94640; 99284-25; J1644

== ENCOUNTER 2018-02-05 12:17 | Emergency (ER) | payer BC, OTHER ==
[2018-02-05 12:40] VITALS: BP 137/67; PULSE 77; TEMP 98.2; BMI 21.6
--- NOTE | 2018-02-05 13:17 | PDOC ---
History of Present Illness - General Chief Complaint: Injury Stated Complaint: FINGER INJURY Time Seen by Provider: 02/05/18 12:43 History Source: Patient Exam Limitations: No Limitations - History of Present Illness Initial Comments: 02/05/18 13:13 Best Contact: [phone]. PCP:Dr. Painter Pmhx: HTN/ DM2, hyperlipidemia Pshx:NA Allergies: NKDA 67-year-old female who is right hand dominant presents to the ER complaining of pain to the base of the right fifth digit after it was hyperflexed yesterday. Patient denies extremity numbness or tingling sensation. Patient denies any other injury or complaints. Past History - Past Medical History Allergies/Adverse Reactions: Allergies Allergy/AdvReac Type Severity Reaction Status Date / Time No Known Allergies Allergy Verified 02/05/18 12:35 Home Medications: Ambulatory Orders Aspirin [ASA -] 81 mg PO DAILY 02/08/17 Atorvastatin Ca [Lipitor] 40 mg PO DAILY 02/08/17 Enalapril Maleate [Vasotec] 20 mg PO DAILY 02/08/17 Glipizide [Glipizide ER] 10 mg PO DAILY 02/08/17 Linaclotide [Linzess] 145 mcg PO DAILY 02/08/17 Linagliptin/Metformin HCl [Jentadueto 2.5 mg-1000 mg Tab] 1 each PO DAILY Montelukast Na [Singulair -] 10 mg PO HS 02/08/17 Ondansetron [Zofran *Odt*] 8 mg SL BID PRN #14 od.tablet 02/08/17 Ranitidine [Zantac -] 150 mg PO DAILY 02/08/17 Metoclopramide HCl 10 mg PO BID #60 tab 02/19/17 Pantoprazole Sodium [Protonix -] 40 mg PO DAILY #30 tablet.ec 02/19/17 COPD: No Diabetes: Yes HTN: Yes Hypercholesterolemia: Yes - Immunization History Immunization Up to Date: Yes - Suicide/Smoking/Psychosocial Hx Smoking Status: No Smoking History: Never smoked Number of Cigarettes Smoked Daily: 0 Hx Alcohol Use: No Drug/Substance Use Hx: No Substance Use Type: None Hx Substance Use Treatment: No Review of Systems - Review of Systems Able to Perform ROS?: Yes Comments:: 02/05/18 13:15 CONSTITUTIONAL: Absent: fever, chills, diaphoresis, generalized weakness, malaise, loss of appetite MUSCULOSKELETAL: +pain to base of 5th right digit Absent: myalgia, arthralgia, joint swelling SKIN: Absent: rash, itching, pallor HEMATOLOGIC/IMMUNOLOGIC: Absent: easy bleeding, easy bruising, lymphadenopathy, frequent infections Is the patient limited [place] proficient: No *Physical Exam - Vital Signs Last Vital Signs Temp Pulse Resp BP Pulse Ox 98.2 F 77 19 137/67 96 02/05/18 12:35 02/05/18 12:35 02/05/18 12:35 02/05/18 12:35 02/05/18 12:35 - Physical Exam Comments: 02/05/18 13:16 GENERAL: Well developed, well nourished. Awake and alert. No acute distress. MUSCULOSKELETAL Normal range of motion at all joints. No bony deformities or tenderness. No CVA tenderness. EXTREMITIES: No cyanosis. No clubbing. No edema. No calf tenderness. SKIN: Warm and dry. Normal capillary refill. No rashes. No jaundice. Right hand +pain/ecchymosis to base of 5th digit F.R.O.M> cap refill <2 sec Moderate Sedation - Procedure Monitoring Vital Signs: Vital Signs Temp Pulse Resp BP Pulse Ox 98.2 F 77 19 137/67 96 02/05/18 12:35 02/05/18 12:35 02/05/18 12:35 02/05/18 12:35 02/05/18 12:35 ED Treatment Course - RADIOLOGY Radiology Studies Ordered: Category Date Time Status HAND- RIGHT [RAD] Stat Radiology 02/05/18 12:43 Taken Radiograph Interpretation: 02/05/18 13:17 Xray with hand; neg *DC/Admit/Observation/Transfer Diagnosis at time of Disposition: Finger contusion Qualifiers: Encounter type: initial encounter Finger: little finger Damage to nail status: without damage Laterality: right Qualified Code(s): S60.051A - Contusion of right little finger without damage to nail, initial encounter - Discharge Dispostion Disposition: HOME Condition at time of disposition: Stable Decision to Admit order: No - Referrals Referrals: Chloé Hodge MD [Primary Care Provider] - Angelito Matos MD [Staff Physician] - - Patient Instructions Printed Discharge Instructions: DI for Contusion Additional Instructions: Ice; 20 mins on alternating with 20 mins off for 48 hours while awake. Rest Elevate Follow up with your orthopedic surgeon or the one listed on the discharge form. Return to the ER for severe/persistent/worsening symptoms, extremity numbness/ tingling sensation. - Post Discharge Activity
== END 2018-02-05 13:35 | disposition home or self-care (01) ==
LOC: JERFT 12:17
DX: S60.051A Contusion of right little finger without damage to nail, initial encounter (principal); X50.1XXA Overexertion from prolonged static or awkward postures, initial encounter; Y93.89 Activity, other specified; Y92.89 Other specified places as the place of occurrence of the external cause; Y99.8 Other external cause status; I10 Essential (primary) hypertension; E78.00 Pure hypercholesterolemia, unspecified; E11.9 Type 2 diabetes mellitus without complications; Z79.84 Long term (current) use of oral hypoglycemic drugs
CPT/HCPCS: 73130-TC-RT-FY; 99281-25

== ENCOUNTER 2018-09-19 11:38 | Day surgery (SDC) | payer BC, OTHER ==
[2018-09-17 13:19] VITALS: BMI 24.4
[2018-09-19] MEDS ORDERED: DEXAMETHASONE SOD PHOSPHATE/PF 10 MG/ML SDV ONE (12:53)
[2018-09-19] MEDS ORDERED: ROPIVACAINE HCL 0.5% 30ML VIAL ONE (12:53)
[2018-09-19] MEDS ORDERED: MIDAZOLAM HCL 2 MG/2 ML SINGLE DOSE VIAL ONE (12:53)
[2018-09-19] MEDS ORDERED: LIDOCAINE HCL 2% (20ML MULTI-DOSE VIAL) NR ONE (13:20)
[2018-09-19] MEDS ORDERED: PROPOFOL 20 ML ONE (13:48)
[2018-09-19] MEDS ORDERED: DEXAMETHASONE SOD PHOSPHATE 4 MG/1 ML VIAL ONE (13:49)
[2018-09-19] MEDS ORDERED: ONDANSETRON 4 MG/2 ML VIAL ONE (13:49)
[2018-09-19] MEDS ORDERED: ceFAZolin SODIUM 1 GM VIAL ONE (13:53)
[2018-09-19] MEDS ORDERED: PROMETHAZINE HCL 25 MG/1 ML VIAL IVPUSH PRN (15:57)
[2018-09-19] MEDS ORDERED: ONDANSETRON 4 MG/2 ML VIAL IVPUSH PRN (15:57)
[2018-09-19] MEDS ORDERED: oxyCODONE HCL 5 MG TABLET PO PRN ×2 (15:57)
[2018-09-19] MEDS ORDERED: ACETAMINOPHEN 325 MG TABLET (FP) PO SCH (16:00)
[2018-09-19 17:06] VITALS: BP 110/67
[2018-09-19 17:10] VITALS: PULSE 74; TEMP 97.9
--- NOTE | 2018-09-20 10:48 | OP ---
DATE OF OPERATION: 09/19/2018 PREOPERATIVE DIAGNOSES: 1. Left comminuted displaced intra-articular distal radius fracture. 2. Left distal radial and joint dislocation. POSTOPERATIVE DIAGNOSES: 1. Left comminuted displaced intra-articular distal radius fracture. 2. Left distal radial and joint dislocation. OPERATIVE PROCEDURE: 1. Left distal radius open reduction internal fixation with internal fixation of 3 or more fragments. 2. Left brachioradialis tenotomy. 3. Left distal radial ulnar joint dislocation, open reduction internal fixation. SURGEON: Lia Benz MD CAUSTIC PREPARER: JUAN DAVID Quach ANESTHESIA: Regional. COMPLICATIONS: None. ESTIMATED BLOOD LOSS: Minimal. INDICATION FOR PROCEDURE: The patient is a 68-year-old female who sustained the above injury and was indicated for operative treatment. Risks, benefits, and alternatives were discussed with the patient at length as well as her family. Proper informed consent was obtained. DESCRIPTION OF PROCEDURE: After proper identification of patient and correct operative site, the patient was brought to the operating room and placed supine on the table, bony prominences well padded. Sedation was given by the anesthesiologist along with regional anesthesia and intravenous antibiotics. Left upper extremity was prepped and draped in the usual sterile fashion. A well-padded tourniquet was placed with a sterile prep. Esmarch bandage to exsanguinate the left upper extremity. Tourniquet was inflated to 250 mmHg. A longitudinal incision was made over the volar aspect of the wrist. Incision was taken sharply through the skin with blunt and sharp dissection of subcutaneous tissues. Flexor carpi radialis along with the contents of the carpal canal were bluntly and gently retracted for the remainder of the procedure. Of note, the flexor pollicis longus tendon was trapped within the fracture site and was released with only mild fraying. Pronator quadratus was divided, and the fracture was noted to be severely displaced and comminuted. The distal radial ulnar joint was also dislocated with the head of the ulna volar with entrapment of the TFCC and extensor carpi ulnaris. Dorsal incision was necessary to release the extensor carpi ulnaris and TFCC. Fragment of ulnar styloid was found severely displaced and detached and was excised. Distal radial ulnar joint was then able to be reduced but was unstable. Attention was then returned back to the distal radius, and an open reduction internal fixation was attempted to be performed; however, the radial styloid fragment was not reducing, so a brachioradialis tenotomy in the subperiosteal fascia was necessary and performed. The distal radius was then able to be reduced, and an [facility] distal radius plate was placed. This was placed more distal than I would have liked; however, it was necessary to achieve fixation of this fracture. Once fixation was performed, the distal radius was found to be stable. A 0.054 K-wire was placed across the distal radial ulnar joint to stabilize it. Wounds were irrigated and repaired in layers using 4-0 Vicryl and 4-0 nylon. Sterile dressings were applied. Long arm splint was placed. The patient was reversed from anesthesia and brought to the recovery room in stable condition. Phillip Barksdale, the contact center assistant, was integral throughout this procedure. The procedure could not have performed without his skilled operative assistance. LIA BENZ M.D. [id number]
== END 2018-09-19 17:10 | disposition home or self-care (01) ==
LOC: FASU 11:38
PROVIDERS: ATTEND Orthopaedic Surgery Hand Surgery
PROC: 0LN60ZZ Release Left Lower Arm and Wrist Tendon, Open Approach (ICD-10-PCS; 2018-09-19)
PROC: 0PSJ04Z Reposition Left Radius with Internal Fixation Device, Open Approach (ICD-10-PCS; 2018-09-19)
PROC: 0PSL04Z Reposition Left Ulna with Internal Fixation Device, Open Approach (ICD-10-PCS; 2018-09-19)
PROC: 0PSJ04Z Reposition Left Radius with Internal Fixation Device, Open Approach (ICD-10-PCS; principal; 2018-09-19 12:30)
DX: S52.532A Colles' fracture of left radius, initial encounter for closed fracture (principal); S63.015A Dislocation of distal radioulnar joint of left wrist, initial encounter; X58.XXXA Exposure to other specified factors, initial encounter; Y93.9 Activity, unspecified; Y92.9 Unspecified place or not applicable
CPT/HCPCS: 24635; 25290; 25609; C1713; 73110-TC-LR-FY; 82962

== ENCOUNTER → 2018-09-22 | Emergency (ER) | payer BC, OTHER ==
[~2018-09-22] MED LIST changes: -AZITHROMYCIN 250 MG TABLET (FP) ONE; -AZITHROMYCIN 250 MG TABLET (FP) PO ONE; +FAMOTIDINE 20 MG/50 ML IVPB 20 MG/50 ML MG IVPB ONE; +ONDANSETRON 4 MG/2 ML VIAL IVPB ONE; +ONDANSETRON 4 MG/2 ML VIAL ONE; -SODIUM CHLORIDE 1,000 ML IV STA
[2018-09-22 00:59] VITALS: BP 98/55; PULSE 71; TEMP 97.7; BMI 21.4
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
[2018-09-22 01:13] LABS: BASO % 0.6 % (0-2.0); EOS % 1.8 % (0-4.5); HEMOGLOBIN 14.2 GM/dL (10.7-15.3); LYMPH % 16.1 % (8-40); MCH 32.1 pg (25.7-33.7); MCHC 34.7 g/dl (32.0-36.0); MEAN CELL VOLUME 92.4 fl (80-96); MEAN PLT VOLUME 7.5 fl (7.5-11.1); MONO % 7.7 % (3.8-10.2); NEUT % 73.8 % (42.8-82.8); PLATELET COUNT 301 K/MM3 (134-434); RBC 4.43 M/mm3 (3.60-5.2); RDW 13.7 % (11.6-15.6); WHITE BLOOD COUNT 9.8 K/mm3 (4.0-10.0)
[2018-09-22 01:37] LABS: ALBUMIN 3.9 g/dl (3.4-5.0); ALK PHOS 98 U/L (45-117); ANION GAP 12 MMOL/L (8-16); BLOOD UREA NITROGEN 25 mg/dL (7-18); CALCIUM 8.8 mg/dL (8.5-10.1); CHLORIDE 99 mmol/L (98-107); CO2 25 mmol/L (21-32); CREATININE 0.8 mg/dL (0.55-1.3); GLUCOSE,RANDOM 156 mg/dL (74-106); SGOT/AST 18 U/L (15-37); SGPT/ALT 19 U/L (13-61); SODIUM 136 mmol/L (136-145)
== END | disposition home or self-care (01) ==
LOC: JER 00:37
PROC: 3E033GC Introduction of Other Therapeutic Substance into Peripheral Vein, Percutaneous Approach (ICD-10-PCS; principal; 2018-09-22)
PROC: 3E033GC Introduction of Other Therapeutic Substance into Peripheral Vein, Percutaneous Approach (ICD-10-PCS; 2018-09-22)
DX: K29.70 Gastritis, unspecified, without bleeding (principal); E86.0 Dehydration; Z87.81 Personal history of (healed) traumatic fracture; I10 Essential (primary) hypertension; E78.00 Pure hypercholesterolemia, unspecified; E11.9 Type 2 diabetes mellitus without complications; Z79.84 Long term (current) use of oral hypoglycemic drugs
CPT/HCPCS: 36415; 80053; 82550; 84484; 85025; 96365; 96375; 99282-25

== ENCOUNTER 2019-04-04 13:16 | Emergency (ER) | payer OTHER ==
[2019-04-04 13:21] VITALS: BP 112/59; PULSE 67; TEMP 97.8; BMI 23.0
--- NOTE | 2019-04-04 13:23 | PDOC ---
Rapid Medical Evaluation Chief Complaint: Pain Time Seen by Provider: 04/04/19 13:18 Medical Evaluation: Allergies Allergy/AdvReac Type Severity Reaction Status Date / Time No Known Allergies Allergy Verified 09/22/18 00:59 04/04/19 13:20 I have performed a brief in-person evaluation of this patient. The patient presents with a chief complaint of: 4th digit pain, no trauma Pertinent physical exam findings: pain and swelling to right 4th finger , has arthritis I have ordered the following: xray 4th digit The patient will proceed to the ED for further evaluation. 04/04/19 13:22 Discharge Disposition - Diagnosis Pain - Referrals - Patient Instructions - Post Discharge Activity
--- NOTE | 2019-04-04 13:24 | PDOC ---
History of Present Illness - General Chief Complaint: Pain Stated Complaint: RT. FINGER PAIN Time Seen by Provider: 04/04/19 13:18 History Source: Patient - History of Present Illness Initial Comments: 04/04/19 14:12 Chief complaint: Finger pain Patient is a 69-year-old female with history of diabetes, hypertension, hyperlipidemia who states she has pain to the right fourth finger since yesterday, no injury or fall. Patient denies fever and she has pain mostly when she moves it. GENERAL/CONSTITUTIONAL: No fever, weakness. dizziness HEAD, EYES, EARS, NOSE AND THROAT: No change in vision. No ear pain or discharge. No sore throat. CARDIOVASCULAR: No chest pain RESPIRATORY: No shortness of breath or cough GASTROINTESTINAL: No pain, nausea, vomiting, diarrhea or constipation GENITOURINARY: No dysuria MUSCULOSKELETAL: No neck or back pain, right 4th finger SKIN: No rash NEUROLOGIC: No headache, vertigo, loss of consciousness, or loss of sensation. GENERAL: The patient is awake, alert, and fully oriented, in no acute distress. HEAD: Normal with no signs of trauma. EYES: Pupils equal, round and reactive to light, sclera anicteric, conjunctiva clear. ENT: pharynx: no erythema, no exudate, uvula midline NECK: supple CHEST: clear, nontender, rr ABD: soft, nontender BACK: no tenderness or signs of injury EXTREMITIES: Hand, signs of arthritis, no erythema, no paronychia, no swelling, able to flex and extend, but has more pain on extension, neurovascular intact. Rest of extremities, normal range of motion, no edema. NEUROLOGICAL: Normal speech, normal gait. SKIN: Warm, Dry Past History - Past Medical History Allergies/Adverse Reactions: Allergies Allergy/AdvReac Type Severity Reaction Status Date / Time No Known Allergies Allergy Verified 04/04/19 13:21 Home Medications: Ambulatory Orders Aspirin [ASA -] 81 mg PO DAILY 02/08/17 Atorvastatin Ca [Lipitor] 40 mg PO DAILY 02/08/17 Enalapril Maleate [Vasotec] 20 mg PO DAILY 02/08/17 Glipizide [Glipizide ER] 10 mg PO DAILY 02/08/17 Linaclotide [Linzess] 145 mcg PO DAILY 02/08/17 Linagliptin/Metformin HCl [Jentadueto 2.5 mg-1000 mg Tab] 1 each PO DAILY Montelukast Na [Singulair -] 10 mg PO HS 02/08/17 Ondansetron [Zofran *Odt*] 8 mg SL BID PRN #14 od.tablet 02/08/17 Ranitidine [Zantac -] 150 mg PO DAILY 02/08/17 Metoclopramide HCl 10 mg PO BID #60 tab 02/19/17 Pantoprazole Sodium [Protonix -] 40 mg PO DAILY #30 tablet.ec 02/19/17 Asthma: No Cancer: No Cardiac Disorders: No CVA: No COPD: No CHF: No Dementia: No Diabetes: Yes GI Disorders: No Disorders: No HTN: Yes Hypercholesterolemia: Yes Liver Disease: No Seizures: No Thyroid Disease: No - Immunization History Immunization Up to Date: Yes - Suicide/Smoking/Psychosocial Hx Smoking Status: No Smoking History: Never smoked Have you smoked in the past 12 months: No Number of Cigarettes Smoked Daily: 0 Information on smoking cessation initiated: No Hx Alcohol Use: No Drug/Substance Use Hx: No Substance Use Type: None Hx Substance Use Treatment: No *Physical Exam - Vital Signs Last Vital Signs Temp Pulse Resp BP Pulse Ox 97.8 F 67 18 112/59 L 98 04/04/19 13:19 04/04/19 13:19 04/04/19 13:19 04/04/19 13:19 04/04/19 13:19 Procedures - Splinting Splint Location: Right: Finger Pre-Proc Neuro Vasc Exam: normal Pre-Made Type: metal Splint Type: Yes: Finger Post-Proc Neuro Vasc Exam: normal Tien Bandage: no Medical Decision Making - Medical Decision Making 04/04/19 14:25 69-year-old female with history of diabetes, hypertension and hyperlipidemia who felt a muscle cramp in her right fourth finger since yesterday and pain with movement. Patient denies falling, no illness, no fever and no signs of infection. Patient will get x-ray although unlikely fracture X-ray shows no fracture, will give patient splint for comfort, follow-up with either her regular doctor or hand surgeon if it doesn't seem to be getting better early next week. *DC/Admit/Observation/Transfer Diagnosis at time of Disposition: Finger pain, right - Discharge Dispostion Disposition: HOME Condition at time of disposition: Stable Decision to Admit order: No - Referrals Referrals: Mik Carbone MD [Staff Physician] - - Patient Instructions Additional Instructions: You can take Tylenol 650 mg every 4 hours as needed for pain, wear splint, elevate. You can take the splint on and off if wanted for bathing. If it seems to be getting a little better, you can follow-up with your regular doctor if it continues to be very painful, you should follow-up with the hand specialist. ER if fever, swelling, redness or other concerns Puede geronimo Tylenol 650 mg cada 4 horas segn sea necesario para el dolor, usar bayron frula, elevar. Puede quitarse y quitarse la frula si quiere baarse. Si parece que est mejorando un poco, puede hacer un seguimiento con quiroz mdico de cabecera si contina siendo muy doloroso, debe hacer un seguimiento con el especialista en eileen. ER si fiebre, hinchazn, enrojecimiento u otras preocupaciones - Post Discharge Activity
== END 2019-04-04 14:36 | disposition home or self-care (01) ==
LOC: JERFT 13:16
PROC: 2W3JX1Z Immobilization of Right Finger using Splint (ICD-10-PCS; principal; 2019-04-04)
DX: M79.644 Pain in right finger(s) (principal); I10 Essential (primary) hypertension; E78.00 Pure hypercholesterolemia, unspecified; E11.9 Type 2 diabetes mellitus without complications; Z79.84 Long term (current) use of oral hypoglycemic drugs
CPT/HCPCS: 73140-TC-RT-FY; 99281-25

== ENCOUNTER 2020-05-22 14:55 | Emergency (ER) | payer OTHER ==
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
[2020-05-22 15:07] VITALS: TEMP 98.6; BMI 22.6
[2020-05-22] MEDS ORDERED: ONDANSETRON 4 MG/2 ML VIAL IVPUSH ONE (16:09)
[2020-05-22 17:17] LABS: BASO % 0.5 % (0-2.0); EOS % 3.5 % (0-4.5); HEMATOCRIT 43.5 % (32.4-45.2); HEMOGLOBIN 14.4 GM/dL (10.7-15.3); LYMPH % 18.8 % (8-40); MCH 31.1 pg (25.7-33.7); MCHC 33.2 g/dl (32.0-36.0); MEAN CELL VOLUME 93.9 fl (80-96); MEAN PLT VOLUME 7.5 fl (7.5-11.1); MONO % 7.4 % (3.8-10.2); NEUT % 69.8 % (42.8-82.8); PLATELET COUNT 262 K/MM3 (134-434); RBC 4.63 M/mm3 (3.60-5.2); RDW 13.1 % (11.6-15.6); WHITE BLOOD COUNT 9.7 K/mm3 (4.0-10.0)
[2020-05-22 17:48] LABS: ALBUMIN 4.4 g/dl (3.4-5.0); ALK PHOS 79 U/L (45-117); ANION GAP 9 MMOL/L (8-16); BILIRUBIN,TOTAL 0.6 mg/dL (0.2-1); BLOOD UREA NITROGEN 21.4 mg/dL (7-18); CALCIUM 9.4 mg/dL (8.5-10.1); CHLORIDE 105 mmol/L (98-107); CO2 25 mmol/L (21-32); CREATININE 0.9 mg/dL (0.55-1.3); GLUCOSE,RANDOM 107 mg/dL (74-106); POTASSIUM 5.1 mmol/L (3.5-5.1); SGOT/AST 43 U/L (15-37); SGPT/ALT 33 U/L (13-61); SODIUM 139 mmol/L (136-145); TOT PROT 7.9 g/dl (6.4-8.2)
--- NOTE | 2020-05-22 18:56 | PDOC ---
*Physical Exam - Vital Signs Last Vital Signs Temp Pulse Resp BP Pulse Ox 98.6 F 71 18 166/62 99 05/22/20 15:00 05/22/20 15:00 05/22/20 15:00 05/22/20 15:00 05/22/20 15:00 ED Treatment Course - LABORATORY CBC & Chemistry Diagram: 05/22/20 16:30 05/22/20 16:30 - ADDITIONAL ORDERS Additional order review: Laboratory Results 05/22/20 16:30 Sodium 139 Potassium 5.1 Chloride 105 Carbon Dioxide 25 Anion Gap 9 BUN 21.4 H Creatinine 0.9 Est GFR (CKD-EPI)AfAm 75.08 Est GFR (CKD-EPI)NonAf 64.78 Random Glucose 107 H Calcium 9.4 Total Bilirubin 0.6 AST 43 H ALT 33 Alkaline Phosphatase 79 Troponin I < 0.02 Total Protein 7.9 Albumin 4.4 05/22/20 16:30 RBC 4.63 MCV 93.9 MCHC 33.2 RDW 13.1 MPV 7.5 Neutrophils % 69.8 Lymphocytes % 18.8 Monocytes % 7.4 Eosinophils % 3.5 D Basophils % 0.5 - Medications Given in the ED: ED Medications Discontinued Medications Generic Name Dose Route Start Last Admin Trade Name Freq PRN Reason Stop Dose Admin Ondansetron HCl 4 mg 05/22/20 16:09 05/22/20 16:12 Zofran Injection IVPUSH 05/22/20 16:10 4 mg ONCE ONE Administration Medical Decision Making - Medical Decision Making 05/22/20 18:54 pt signed out to pr aapprox 7pm. Patient had a mechanical slip and fall striking her neck against a shelf, she had several episodes of vomiting during transport and in the ED. Patient's work-up unremarkable with negative CT of brain and cervical spine. She was cleared from her C-spine precautions. On reassessment the patient is asymptomatic denies any headache, neck pain, she has no tenderness with range of motion of her neck. States that her nausea has Resolved.. Patient was able to ambulate, tolerate oral intake and remains asymptomatic. Patient will be discharged with outpatient follow-up, return precautions were discussed. Discharge - Discharge Information Problems reviewed: Yes Clinical Impression/Diagnosis: Fall Qualifiers: Encounter type: initial encounter Qualified Code(s): W19.XXXA - Unspecified fall, initial encounter Vomiting Qualifiers: Vomiting type: unspecified Vomiting Intractability: non-intractable Nausea presence: with nausea Qualified Code(s): R11.2 - Nausea with vomiting, unspecified Condition: Improved Disposition: HOME - Admission No - Follow up/Referral Referrals: Padmini Painter MD [Primary Care Provider] - - Patient Discharge Instructions Patient Printed Discharge Instructions: DI for Concussion, DI for Postconcussion Syndrome Additional Instructions: You came to the ED after you fell in a store. We scanned your body, tested your blood, and looked at your heart's electrical activity. We also challenged you to eat and walk, which you did very well. Your tests came back normal, except for a small thyroid nodule and a small nodule in your lungs. Please follow up with Dr. Hodge regarding these. You were given the scan reads. Come back to the emergency department if: 1. You start vomiting again. 2. You develop an altered level of consciousness. 3. You lose consciousness (pass out) 4. Develop any other severe symptoms. Again, please follow up with Dr. Hodge within 2 days of leaving the emergency department. - Post Discharge Activity
[2020-05-22 19:11] VITALS: BP 147/65; PULSE 86
== END 2020-05-22 19:11 | disposition home or self-care (01) ==
LOC: JER 14:55
PROC: 3E033GC Introduction of Other Therapeutic Substance into Peripheral Vein, Percutaneous Approach (ICD-10-PCS; principal; 2020-05-22)
DX: S06.0X0A Concussion without loss of consciousness, initial encounter (principal); F07.81 Postconcussional syndrome; R11.2 Nausea with vomiting, unspecified
CPT/HCPCS: 36415; 70450-TC; 71046-TC-FY; 71250-TC; 72125-TC; 74176-TC; 80053; 84484; 85025; 99285-25

== ENCOUNTER → 2020-06-22 | Day surgery (SDC) | payer OTHER ==
--- OUTSIDE RECORDS SUMMARY | 2020-06-22 09:55 | XMS ---
:1950 Author Organization [facility] Support Name Relationship Address Phone RE, RETIRED Unavailable Unavailable Unavailable RE Unavailable Unavailable Unavailable CAILIN GARCIA SON [address] [facility] [phone] [place] [address] YENNY HOLLY DAUGHTER [address] [facility] [address] [place] [address] YENNY HOLLY Child [address] [facility] [place] [address] Re-disclosure Warning The records that you are about to access may contain information from federally- assisted alcohol or drug abuse programs. If such information is present, then the following federally mandated warning applies: This information has been disclosed to you from records protected by federal confidentiality rules (42 CFR part 2). The federal rules prohibit you from making any further disclosure of this information unless further disclosure is expressly permitted by the written consent of the person to whom it pertains or as otherwise permitted by 42 CFR part 2. A general authorization for the release of medical or other information is NOT sufficient for this purpose. The Federal rules restrict any use of the information to criminally investigate or prosecute any alcohol or drug abuse patient.The records that you are about to access may contain highly sensitive health information, the redisclosure of which is protected by Article 27-F of the [facility] Public Health law. If you continue you may haveaccess to information: Regarding HIV / AIDS; Provided by facilities licensed or operated by the [facility] Office of Mental Health; or Provided by the [facility] Office for People With Developmental Disabilities. If such information is present, then the following [facility] mandated warning applies: This information has been disclosed to you from confidential records which are protected by state law. State law prohibits you from making any further disclosure of this information without the specific written consent of the person to whom it pertains, or as otherwise permitted by law. Any unauthorized further disclosure in violation of state law may result in a fine or shelter sentence or both. A general authorization for the release of medical or other information is NOT sufficient authorization for further disclosure. Insurance Providers Payer name Policy type Policy ID Covered Covered democrat's Policy P arabella / Coverage democrat ID relationship to [employer] Inf ormation type machado HIP MEDICARE [id number] SP [id number] VIP MEDICAID [id number] SP [id number] BLUE CROSS [id number] SP [id number] SENIOR PLAN Medicare-Blue [id number] S [id number] Cross/Blue Shield MVP Medicaid [id number] S [id number] Managed Care [facility] [id number] S [id number] FFS Medicaid (DON'T USE) [id number] S [id number] [facility] Non-Par Medical Manage Care [address] [place] [facility] [id number] S [id number] Options [id number] Medicaid [id number] S [id number] Regular Clinic Visit Medicare [id number] S [id number] [address] [facility] Services Problems, Conditions, and Diagnoses Code Display Name Description Problem Type Effective Dates Data Source(s) 692.9 CONTACT DERMATITIS DERMATITIS NOS Diagnosis 11/20/2018 [facility] 06:02:59 PM EST Pauly non UNSPECIFIED CAUSE [facility]) Results ID Date Data Source [id number] 04/20/2020 12:00:00 AM EDT [facility] Name Value Range Interpretation Code Description Data Lashon rce(s) Supporting Document(s ) COV2 [facility] This lab was ordered by TORRI and kaleigh ruff by [facility]. Procedure
--- NOTE | 2020-06-23 17:39 | PATH ---
Cytology Non-Gynecological Report Patient Name: EBONI GARCIA [facility]. Rec. #: [id number] /Age/Gender: 1950 (Age: 70) / F Account: [id number] Location: RADIOLOGY INTER Taken: 06/22/2020 Received: 06/22/2020 Reported: 06/23/2020 Physicians: Isaak Ness M.D. Specimen(s) Received THYROID, RIGHT LOBE, FINE NEEDLE ASPIRATION Clinical History Right lobe, 3.21 x 1.49 x 1.74 cm Final Diagnosis THYROID, RIGHT LOBE, FINE NEEDLE ASPIRATION: SATISFACTORY FOR EVALUATION. BETHESDA CLASS II: BENIGN. CYTOLOGIC FINDINGS ARE SUGGESTIVE OF BENIGN COLLOID NODULE. FEW SMALL FOLLICULAR CELLS AND ABUNDANT COLLOID PRESENT. Comment: Suggest clinical and radiologic correlation. If the nodule has worrisome ultrasound imaging properties, suggest repeat FNA, as warranted. Electronically Signed Daya Carty M.D. Gross Description Received are eight direct smears, four of which are air-dried and Diff-Quik stained, and four of which are alcohol fixed and Pap stained. Also received is 20 ml of bloody formalin from which one cellblock is prepared.
== END | disposition home or self-care (01) ==
LOC: JRADIR 09:35
PROVIDERS: ATTEND Family Medicine
PROC: 0G9K3ZX Drainage of Thyroid Gland, Percutaneous Approach, Diagnostic (ICD-10-PCS; principal; 2020-06-22)
DX: E04.1 Nontoxic single thyroid nodule (principal)
CPT/HCPCS: 76942; 88173; 88305-TC

== ENCOUNTER 2022-04-21 19:59 | Emergency (ER) | payer OTHER ==
[2022-04-21 20:15] VITALS: RESP 16; BMI 24.4
[2022-04-21] MEDS ORDERED: SODIUM CHLORIDE 0.9% 500 ML INFUS.BAG IV ONE (20:16)
[2022-04-21] MEDS ORDERED: ACETAMINOPHEN 1000 MG/100 ML BAG IVPB ONE (20:16)
[2022-04-21] MEDS ORDERED: ACETAMINOPHEN INJECTION 100 ML IVPB ONE (20:17)
[2022-04-21 20:53] LABS: HEMOGLOBIN 14.4 G/dL (10.7-15.3); MCH 31.9 pg (25.7-33.7); MCHC 35.5 g/dl (32.0-36.0); MEAN CELL VOLUME 89.8 fl (80-96); MEAN PLT VOLUME 7.2 fl (7.5-11.1); PLATELET COUNT 215.1 10^3/uL (134-434); RBC 4.53 10^6/uL (3.60-5.2); RDW 13.5 % (11.6-15.6); WHITE BLOOD COUNT 7.7 10^3/uL (4.0-10.8)
[2022-04-21 20:55] LABS: HEMATOCRIT 42.5 % (32.4-45.2)
[2022-04-21 21:00] LABS: ALBUMIN 3.8 g/dl (3.4-5.0); BILIRUBIN,TOTAL 0.9 mg/dl (0.2-1); CALCIUM 9.2 mg/dl (8.5-10); MAGNESIUM 1.5 mg/dL (1.8-2.4); TOT PROT 7.1 g/dl (6.4-8.2)
[2022-04-21 21:16] LABS: PLATELET ESTIMATE ADEQUATE
[2022-04-21 21:26] LABS: EPITHELIAL CELLS FEW /hpf
[2022-04-21 21:29] VITALS: BP 105/60; PULSE 75; TEMP 99
[2022-04-21] MEDS ORDERED: AMOX TR/POT CLAV 875MG/125MG TABLETS (FP) PO ONE (23:04)
[2022-04-21] MEDS ORDERED: DOXYCYCLINE HYCLATE 100 MG CAPSULE PO ONE ×2 (23:05→23:10)
[2022-04-21] MEDS ORDERED: AMOX TR/POT CLAV 875MG/125MG TABLETS (FP) ONE (23:10)
== END 2022-04-22 00:06 | disposition home or self-care (01) ==
LOC: SUPCPDRO 19:59 → FER 19:59
PROC: 3E0333Z Introduction of Anti-inflammatory into Peripheral Vein, Percutaneous Approach (ICD-10-PCS; principal; 2022-04-21)
DX: U07.1 COVID-19 (principal)
CPT/HCPCS: 0241U-QW; 36415; 71045-TC-FY; 80053; 81003; 81015; 83735; 84100; 85027; 87086; 93005; 99285-25

== ENCOUNTER 2022-05-03 10:33 | Emergency (ER) | payer OTHER ==
[2022-05-03 10:54] VITALS: TEMP 98; BMI 23.6
[2022-05-03] MEDS ORDERED: SODIUM CHLORIDE 0.9% 500 ML INFUS.BAG IV ONE (11:02)
[2022-05-03] MEDS ORDERED: METOCLOPRAMIDE HCL INJECTION 10 MG/2 ML VIAL IVPB ONE (11:03)
[2022-05-03] MEDS ORDERED: ACETAMINOPHEN 1000 MG/100 ML BAG IVPB ONE (11:18)
[2022-05-03] MEDS ORDERED: METOCLOPRAMIDE HCL INJECTION 10 MG/2 ML VIAL ONE (11:24)
[2022-05-03] MEDS ORDERED: ACETAMINOPHEN INJECTION 100 ML IVPB ONE (11:25)
[2022-05-03 12:01] LABS: INR 1.08 (0.83-1.09); PROTHROMBIN TIME (PATIENT) 12.4 SEC (9.7-13.0)
[2022-05-03 12:04] LABS: HEMATOCRIT 40.1 % (32.4-45.2); HEMOGLOBIN 13.9 G/dL (10.7-15.3); MCH 31.5 pg (25.7-33.7); MCHC 34.8 g/dl (32.0-36.0); MEAN CELL VOLUME 90.6 fl (80-96); MEAN PLT VOLUME 6.8 fl (7.5-11.1); PLATELET COUNT 297.7 10^3/uL (134-434); RBC 4.43 10^6/uL (3.60-5.2); RDW 13.9 % (11.6-15.6); WHITE BLOOD COUNT 12.2 10^3/uL (4.0-10.8)
[2022-05-03 12:15] LABS: PLATELET ESTIMATE ADEQUATE
[2022-05-03 12:20] LABS: BILIRUBIN,TOTAL 0.8 mg/dl (0.2-1); CALCIUM 9.4 mg/dl (8.5-10); CREATININE 0.7 mg/dl (0.55-1.3); MAGNESIUM 1.8 mg/dL (1.8-2.4); PHOSPHOROUS 2.1 mg/dl (2.5-4.9)
[2022-05-03 12:25] LABS: EPITHELIAL CELLS RARE /hpf
[2022-05-03] MEDS ORDERED: KETOROLAC TROMETHAMINE 15 MG/ML VIAL IVPUSH ONE (13:43)
[2022-05-03] MEDS ORDERED: LIDOCAINE 5% TOPICAL PATCH TP ONE (13:43)
[2022-05-03] MEDS ORDERED: LIDOCAINE 5% TOPICAL PATCH ONE (13:45)
[2022-05-03] MEDS ORDERED: KETOROLAC TROMETHAMINE 15 MG/ML VIAL ONE (13:45)
[2022-05-03 14:07] VITALS: BP 145/76; PULSE 65; RESP 16
[2022-05-03] MEDS ORDERED: LIDOCAINE PATCH REMOVAL MC SCH (22:00)
== END 2022-05-03 14:29 | disposition home or self-care (01) ==
LOC: FER 10:33
PROC: 3E0333Z Introduction of Anti-inflammatory into Peripheral Vein, Percutaneous Approach (ICD-10-PCS; principal; 2022-05-03)
PROC: 3E033GC Introduction of Other Therapeutic Substance into Peripheral Vein, Percutaneous Approach (ICD-10-PCS; 2022-05-03)
PROC: 3E033GC Introduction of Other Therapeutic Substance into Peripheral Vein, Percutaneous Approach (ICD-10-PCS; 2022-05-03)
DX: R51.9 Headache, unspecified (principal); M54.2 Cervicalgia
CPT/HCPCS: 0241U-QW; 36415; 70450-TC; 71045-TC-FY; 72125-TC; 80053; 81003; 81015; 82550; 83735; 84100; 84484; 85027; 85610; 86850; 86900; 86901; 93005; 99285-25

== ENCOUNTER 2023-09-13 12:48 | Emergency (ER) | payer OTHER ==
[2023-09-13 13:00] VITALS: BP 112/64; PULSE 91; RESP 18; TEMP 97; BMI 20.7
[2023-09-13 15:23] LABS: BASO % 0.6 % (0-2.0); EOS % 3.3 % (0-4.5); HEMATOCRIT 44.1 % (32.4-45.2); HEMOGLOBIN 14.2 GM/dL (10.7-15.3); LYMPH % 25.3 % (8-40); MCH 27.1 pg (25.7-33.7); MCHC 32.1 g/dl (32.0-36.0); MEAN CELL VOLUME 84.4 fl (80-96); MEAN PLT VOLUME 6.8 fl (7.5-11.1); MONO % 15.5 % (3.8-10.2); NEUT % 55.3 % (42.8-82.8); PLATELET COUNT 196 10^3/uL (134-434); RBC 5.23 M/mm3 (3.60-5.2); RDW 19.5 % (11.6-15.6); WHITE BLOOD COUNT 4.2 K/mm3 (4.0-10.0)
[2023-09-13 15:30] LABS: INR 1.06 (0.83-1.09); PROTHROMBIN TIME (PATIENT) 12.3 SEC (9.7-13.0)
[2023-09-13 15:41] LABS: POTASSIUM 4.5 mmol/L (3.5-5.1)
[2023-09-13 15:43] LABS: ALBUMIN 4.1 g/dl (3.4-5.0); CALCIUM 9.6 mg/dL (8.5-10.1)
[2023-09-13 15:47] LABS: BILIRUBIN,TOTAL 0.4 mg/dL (0.2-1); CREATININE 0.9 mg/dL (0.55-1.3)
[2023-09-13 15:49] LABS: TOT PROT 7.9 g/dl (6.4-8.2)
== END 2023-09-13 16:40 | disposition home or self-care (01) ==
LOC: JER 12:48
DX: M54.6 Pain in thoracic spine (principal); R53.83 Other fatigue; R63.0 Anorexia; R05.9 Cough, unspecified; R50.9 Fever, unspecified; R11.0 Nausea; J10.1 Influenza due to other identified influenza virus with other respiratory manifestations; Z20.822 Contact with and (suspected) exposure to COVID-19
CPT/HCPCS: 0241U-QW; 36415; 71046-TC-FY; 80053; 84484; 85025; 85610; 85730; 93005; 93010; 99284-25